=== PATIENT | female | born 1975 | race Caucasian/White ===

== ENCOUNTER 2016-05-10 14:21 | Emergency (ER) | payer MEDICARE, OTHER ==
[2016-05-10 14:41] VITALS: RESP 20
[2016-05-10] MEDS ORDERED: SODIUM CHLORIDE 0.9% 1,000 ML IV ONE (15:02)
[2016-05-10] MEDS ORDERED: ACETAMINOPHEN TAB 325 MG TAB PO STA (15:38)
--- NOTE | 2016-05-10 15:49 | XR ---
EXAMINATION TYPE: XR chest 2V DATE OF EXAM: 05/10/2016 3:35 PM COMPARISON: None HISTORY: 40-year-old female with cough TECHNIQUE: PA and lateral views FINDINGS: The cardiomediastinal silhouette, aorta, and pulmonary vasculature are within normal limits. Lungs an d pleural spaces are clear. Mild pectus excavatum. IMPRESSION: No acute cardiopulmonary process.
[2016-05-10 15:50] LABS: Basophils % (A) 0 %; CH 30.6; CHCM 32.5; Eosinophils # (A) 0.1 k/uL (0-0.7); Eosinophils % (A) 1 %; HCT 37.2 % (34.0-46.0); HDW 2.01; Luc # (Auto) 0.12; Luc % (Auto) 2; Lymphocytes # (A) 1.2 k/uL (1.0-4.8); Lymphocytes % (A) 16 %; MCH 30.5 pg (25.0-35.0); MCHC 32.3 g/dL (31.0-37.0); MCV 94.4 fL (80.0-100.0); Mean Platelet Volume 7.2; Monocytes # (A) 0.5 k/uL (0-1.0); Monocytes % (A) 7 %; Neutrophils # (A) 5.6 k/uL (1.3-7.7); Neutrophils % (A) 75 %; RBC 3.95 m/uL (3.80-5.40); RDW 13.4 % (11.5-15.5); WBC 7.5 k/uL (3.8-10.6); WBC (Perox) 7.48
[2016-05-10 15:52] LABS: Appearance,Urine Clear (Clear); Bilirubin,Urine Negative (Negative); Glucose,Urine (UA) Negative (Negative); Ketones,Urine Negative (Negative); Leukocyte Esterase,Urine Negative (Negative); Nitrite,Urine Negative (Negative); PH, Urine 6.5 (5.0-8.0); Protein,Urine Negative (Negative); Specific Gravity,Urine 1.001 (1.001-1.035); UA Billing (MACRO vs. MICRO) CHEM; Urobilinogen,Urine <2.0 mg/dL (<2.0)
[2016-05-10 16:03] LABS: Anion Gap 9 mmol/L; Blood Urea Nitrogen 11 mg/dL (7-17); Calcium 9.2 mg/dL (8.4-10.2); Carbon Dioxide 27 mmol/L (22-30); Chloride 107 mmol/L (98-107); Glucose 89 mg/dL (74-99); Non-African American GFR(MDRD) >60 (>60 ml/min/1.73 sqM); Potassium 4.3 mmol/L (3.5-5.1); Sodium 143 mmol/L (137-145)
[2016-05-10 17:17] VITALS: BP 106/64; PULSE 88; TEMP 98.9
--- NOTE | 2016-05-10 17:18 | ED ---
General Adult HPI - General Chief complaint: Fever Stated complaint: Post opt Recheck Time Seen by Provider: 05/10/16 14:44 Source: patient Mode of arrival: ambulatory Limitations: no limitations - History of Present Illness Initial comments: 4-year-old female presented for evaluation of a recently repaired rectal fistula. She states that she had her surgery about [address] Hudson and was discharged home without any antibiotics. During this time she was doing soap soaks in her tub. She continued to have bleeding from the site of the surgery for the first 2 days but during the last 2 days the bleeding is continued and there is been an associated fever with a T-max of 10 1F as well as a foul smell from that area. She states that she is continued her soap soaks but the new symptoms continued to persist. She denies any abdominal pain but does admit to a serosanguineous discharge from the wound. This is her second fistula repair. She also states there is a concomitant URI that she has been battling for the last couple days well. - Related Data Home Medications Medication Instructions Recorded Confirmed Pentosan Polysulfate Sodium 100 mg PO HS 06/12/14 05/10/16 [Elmiron] Ergocalciferol [Vitamin D2 50,000 unit PO MO 01/10/16 05/10/16 (DRISDOL)] Estradiol [Estrace] 1 mg PO HS 01/10/16 05/10/16 Lisdexamfetamine Dimesylate 20 mg PO QAM 01/10/16 05/10/16 [Vyvanse] Melatonin 5 mg PO HS 01/10/16 05/10/16 Naproxen [Naprosyn] 500 mg PO Q12HR PRN 01/10/16 05/10/16 OLANZapine [ZyPREXA] 5 mg PO HS 01/10/16 05/10/16 Docusate [Colace] 100 mg PO DAILY 05/10/16 05/10/16 lamoTRIgine [LaMICtal] 200 mg PO TID 05/10/16 05/10/16 Previous Rx's Medication Instructions Recorded Ciprofloxacin HCl [Cipro] 500 mg PO Q12HR #14 tablet 05/10/16 metroNIDAZOLE [Flagyl] 500 mg PO TID #21 tab 05/10/16 Allergies Allergy/AdvReac Type Severity Reaction Status Date / Time aripiprazole [From Abilify] Allergy SWOLLEN Verified 05/10/16 15:19 LIPS IV contrast Allergy Itching Uncoded 05/10/16 14:41 Review of Systems ROS Statement: Those systems with pertinent positive or pertinent negative responses have been documented in the HPI. ROS Other: All systems not noted in ROS Statement are negative. Constitutional: Reports: fever, chills Eyes: Denies: eye pain, eye discharge ENT: Reports: congestion, other (Rhinorrhea). Denies: ear pain, throat pain Respiratory: Reports: cough. Denies: dyspnea, wheezes, hemoptysis, stridor Cardiovascular: Denies: chest pain, palpitations, dyspnea on exertion, orthopnea Endocrine: Denies: fatigue, polydipsia, polyuria Gastrointestinal: Denies: abdominal pain, nausea, vomiting Genitourinary: Denies: urgency, dysuria Musculoskeletal: Denies: back pain, myalgia Skin: Reports: lesions (Rectal fistula repair). Denies: rash Neurological: Denies: headache, weakness Psychiatric: Denies: anxiety, depression Past Medical History Additional Past Medical History / Comment(s): cystitis, depression, anxiety. FISTULA History of Any Multi-Drug Resistant Organisms: C-DIFF Date of last positivie culture/infection: 04/29/2014 MDRO Source:: stool AFTER SURGERY Past Surgical History: Hernia Repair, Hysterectomy, Tonsillectomy Past Anesthesia/Blood Transfusion Reactions: No Reported Reaction Past Psychological History: Anxiety, Depression Smoking Status: Never smoker Past Alcohol Use History: None Reported Past Drug Use History: None Reported - Past Family History Mother Family Medical History: No Reported History General Exam Limitations: no limitations General appearance: alert, in no apparent distress Head exam: Present: atraumatic, normocephalic Eye exam: Present: normal appearance, EOMI ENT exam: Present: normal exam, normal oropharynx, mucous membranes moist. Absent: mucous membranes dry Neck exam: Present: normal inspection. Absent: tenderness Respiratory exam: Present: normal lung sounds bilaterally. Absent: respiratory distress, wheezes Cardiovascular Exam: Present: normal rhythm, tachycardia GI/Abdominal exam: Present: soft. Absent: distended, tenderness Rectal exam: Present: tenderness, other (Rectal fistula repair without surrounding erythema or induration. Unable to express any blood or discharge from the wound.) Extremities exam: Present: normal inspection, full ROM Back exam: Present: normal inspection, full ROM. Absent: tenderness Neurological exam: Present: alert, oriented X3, normal gait Psychiatric exam: Present: normal affect, normal mood Skin exam: Present: warm, dry, intact Course Vital Signs 05/10/16 05/10/16 14:38 17:16 Temperature 100.8 F H 98.9 F Pulse Rate 122 H 88 Respiratory 20 20 Rate Blood Pressure 115/73 106/64 O2 Sat by Pulse 100 97 Oximetry Medical Decision Making - Medical Decision Making 40-year-old female presented for evaluation of her recent rectal fistula repair that has since become more tender with a malodorous smell. Upon presentation she has a mildly elevated temperature and will therefore initiate sepsis protocols and obtain cultures, lactic acid, and provide IV fluids. Physical examination reveals the fistula repair to be in the early stages of healing, without any active bleeding or discharge, and no discharge able to be expressed. There is no surrounding erythema or induration although it is tender to palpate. The rest of her exam is benign with normal lung sounds and nontender abdomen. There is no sinus tenderness to palpation and she is not actively with rhinorrhea. Labs revealed no significant abnormalities including normal lactic acid. Influenza was negative. Chest x-ray showed no acute process. There was a normal white blood cell count. The patient's surgeon Dr. Hudson was unavailable for contact and was therefore not informed of these developments. Patient was informed of all these results and through shared decision making including consideration for admission the patient agreed with plan to discharge with antibiotics and close follow-up with her surgeon on Thursday. She was further advised to return to this facility if her symptoms should worsen or persist including but not limited to: Worsening fever, intractable abdominal pain, continued discharge from the wound, continuing bloater disorder, intractable nausea and vomiting, tremors. The patient acknowledged an understanding of this information and agreed with this plan of care. - Lab Data Result diagrams: 05/10/16 15:23 05/10/16 15:23 Lab Results 05/10/16 05/10/16 05/10/16 Range/Units 15:23 15: 15: WBC 7.5 (3.8-10.6) k/uL RBC 3.95 (3.80-5.40) m/uL Hgb 12.0 (11.4-16.0) gm/dL Hct 37.2 (34.0-46.0) % MCV 94.4 (80.0-100.0) fL MCH 30.5 (25.0-35.0) pg MCHC 32.3 (31.0-37.0) g/dL RDW 13.4 (11.5-15.5) % Plt Count 207 (150-450) k/uL Neutrophils % 75 % Lymphocytes % 16 % Monocytes % 7 % Eosinophils % 1 % Basophils % 0 % Neutrophils # 5.6 (1.3-7.7) k/uL Lymphocytes # 1.2 (1.0-4.8) k/uL Monocytes # 0.5 (0-1.0) k/uL Eosinophils # 0.1 (0-0.7) k/uL Basophils # 0.0 (0-0.2) k/uL Sodium 143 (137-145) mmol/L Potassium 4.3 (3.5-5.1) mmol/L Chloride 107 (98-107) mmol/L Carbon Dioxide 27 (22-30) mmol/L Anion Gap 9 mmol/L BUN 11 (7-17) mg/dL Creatinine 0.70 (0.52-1.04) mg/dL Est GFR (MDRD) Af Amer >60 (>60 ml/min/1.73 sqM) Est GFR (MDRD) Non-Af >60 (>60 ml/min/1.73 sqM) Glucose 89 (74-99) mg/dL Plasma Lactic Acid Telly (0.7-2.0) mmol/L Calcium 9.2 (8.4-10.2) mg/dL Urine Color Urine Appearance (Clear) Urine pH (5.0-8.0) Ur Specific [place] (1.001-1.035) Urine Protein (Negative) Urine Glucose (UA) (Negative) Urine Ketones (Negative) Urine Blood (Negative) Urine Nitrate (Negative) Urine Bilirubin (Negative) Urine Urobilinogen (<2.0) mg/dL Ur Leukocyte Esterase (Negative) Influenza Type A RNA Not Detected (Not Detectd) Influenza Type B (PCR) Not Detected (Not Detectd) 05/10/16 05/10/16 Range/Units 15:23 15:23 WBC (3.8-10.6) k/uL RBC (3.80-5.40) m/uL Hgb (11.4-16.0) gm/dL Hct (34.0-46.0) % MCV (80.0-100.0) fL MCH (25.0-35.0) pg MCHC (31.0-37.0) g/dL RDW (11.5-15.5) % Plt Count (150-450) k/uL Neutrophils % % Lymphocytes % % Monocytes % % Eosinophils % % Basophils % % Neutrophils # (1.3-7.7) k/uL Lymphocytes # (1.0-4.8) k/uL Monocytes # (0-1.0) k/uL Eosinophils # (0-0.7) k/uL Basophils # (0-0.2) k/uL Sodium (137-145) mmol/L Potassium (3.5-5.1) mmol/L Chloride (98-107) mmol/L Carbon Dioxide (22-30) mmol/L Anion Gap mmol/L BUN (7-17) mg/dL Creatinine (0.52-1.04) mg/dL Est GFR (MDRD) Af Amer (>60 ml/min/1.73 sqM) Est GFR (MDRD) Non-Af (>60 ml/min/1.73 sqM) Glucose (74-99) mg/dL Plasma Lactic Acid Telly 1.2 (0.7-2.0) mmol/L Calcium (8.4-10.2) mg/dL Urine Color Colorless Urine Appearance Clear (Clear) Urine pH 6.5 (5.0-8.0) Ur Specific [place] 1.001 (1.001-1.035) Urine Protein Negative (Negative) Urine Glucose (UA) Negative (Negative) Urine Ketones Negative (Negative) Urine Blood Negative (Negative) Urine Nitrate Negative (Negative) Urine Bilirubin Negative (Negative) Urine Urobilinogen <2.0 (<2.0) mg/dL Ur Leukocyte Esterase Negative (Negative) Influenza Type A RNA (Not Detectd) Influenza Type B (PCR) (Not Detectd) Disposition Clinical Impression: Fistula, Fever, URI (upper respiratory infection) Disposition: HOME SELF-CARE Condition: Stable Instructions: Anorectal Abscess and Anal Fistula (ED) Additional Instructions: Please use medication as discussed. Please follow up with family doctor if symptoms have not improved over the next two days. Please return to the emergency room if your symptoms increase or worsen or for any other concerns. Prescriptions: Ciprofloxacin HCl [Cipro] 500 mg PO Q12HR #14 tablet metroNIDAZOLE [Flagyl] 500 mg PO TID #21 tab Referrals: Moni You DO [Primary Care Provider] - 1-2 days Time of Disposition: 17:18
== END 2016-05-10 17:25 | disposition home or self-care (01) ==
LOC: EC 14:21
DX: K60.4 Rectal fistula (principal); J06.9 Acute upper respiratory infection, unspecified; F32.9 Major depressive disorder, single episode, unspecified; N30.90 Cystitis, unspecified without hematuria; Z88.8 Allergy status to other drugs, medicaments and biological substances; Z98.890 Other specified postprocedural states; Z91.041 Radiographic dye allergy status; Z79.899 Other long term (current) drug therapy
CPT/HCPCS: 36415; 71020; 80048; 81003; 83605; 85025; 87040; 87502; 96360; 96361; 99283

== ENCOUNTER → 2016-05-22 | Outpatient (CLI) | payer MEDICARE, OTHER | END | disposition home or self-care (01) | LOC: RADFLWHC 08:38 | PROVIDERS: ATTEND Family Medicine ==

== ENCOUNTER → 2016-06-27 | Outpatient (CLI) | payer MEDICARE, OTHER ==
--- NOTE | 2016-06-27 09:10 | FL ---
EXAMINATION TYPE: FL UGI air DATE OF EXAM: 06/27/2016 9:06 AM COMPARISON: NONE HISTORY: Return of reflux symptoms following hiatal hernia repair. TECHNIQUE: A double contrast UGI study is performed. FINDINGS: The patient swallowed barium of these. The esophagus distended well with air and barium wit hout evidence of obstructing or constricting disease. There is no evidence of significant reflux or h iatal hernia. Stomach contour is normal. There are no dawood ulcerations or fixed filling defect. The duodenal cap a nd sweep are normal. IMPRESSION: NORMAL AIR-CONTRAST UPPER GI.
== END | disposition home or self-care (01) ==
LOC: RADFLWHC 08:34
PROVIDERS: ATTEND Family Medicine
DX: K21.9 Gastro-esophageal reflux disease without esophagitis (principal)
CPT/HCPCS: 74246

== ENCOUNTER → 2017-10-22 | Outpatient (CLI) | payer MEDICARE ==
--- NOTE | 2017-10-29 16:37 | MM ---
Reason for exam: screening (asymptomatic). Last mammogram was performed 1 year and 1 month ago. History: Patient is nulliparous. MG 3D Screening Mammo W/Cad Bilateral CC, MLO, and XCCL view(s) were taken. Prior study comparison: September 25, 2016, mammogram, performed at [facility]. September 19, 2015, mammogram, performed at [facility]. The breast tissue is heterogeneously dense. This may lower the sensitivity of mammography. No significant changes when compared with prior studies. ASSESSMENT: Negative, BI-RAD 1 RECOMMENDATION: Routine screening mammogram of both breasts in 1 year.
== END | disposition home or self-care (01) ==
LOC: RADMAMWWP 13:56
PROVIDERS: ATTEND Obstetrics & Gynecology
DX: Z12.31 Encounter for screening mammogram for malignant neoplasm of breast (principal)
CPT/HCPCS: 77063; 77067

== ENCOUNTER → 2018-04-23 | Outpatient (CLI) | payer MEDICARE ==
[2018-04-23 18:54] LABS: Anion Gap 7.1 mmol/L (4.00-12.00); Carbon Dioxide 26.9 mmol/L (21.6-31.8); Lithium 0.4 mmol/L (1.0-1.2); Potassium 4.2 mmol/L (3.5-5.5)
== END | disposition home or self-care (01) ==
LOC: LABWHC1 11:40
DX: Z51.81 Encounter for therapeutic drug level monitoring (principal); Z79.899 Other long term (current) drug therapy
CPT/HCPCS: 36415; 80051; 80178; 82565; 84520

== ENCOUNTER 2018-07-03 16:10 | Inpatient (IN) | payer MEDICAID, MEDICARE ==
--- NOTE | 2018-07-03 16:35 | ED ---
Psych HPI - General Chief Complaint: Psychiatric Symptoms Stated Complaint: Mental Health Time Seen by Provider: 07/03/18 16:19 Source: patient, RN notes reviewed Mode of arrival: ambulatory Limitations: no limitations - History of Present Illness Initial Comments: This a 43-year-old female presents to the emergency Department for psychiatric evaluation. Patient states she is depressed and suicidal. Patient has not tried to harm herself denies any drug use no alcohol abuse. Patient is in between medications. Patient used to be on Zyprexa and Lamictal. Patient's homicidal. Patient offers no other complaints. - Related Data Home Medications Medication Instructions Recorded Confirmed Ergocalciferol [Vitamin D2 50,000 unit PO MO 01/10/16 07/03/18 (DRISDOL)] Estradiol [Estrace] 1 mg PO HS 01/10/16 07/03/18 ALPRAZolam [Xanax XR] 2 mg PO HS 07/03/18 07/03/18 ALPRAZolam [Xanax] 0.5 mg PO DAILY PRN 07/03/18 07/03/18 Biotin 5,000 mcg PO DAILY 07/03/18 07/03/18 Calcium Citrate 250 mg PO BID 07/03/18 07/03/18 [place] Carbonate 150 mg PO TID 07/03/18 07/03/18 Magnesium Oxide [Mag-Ox] 400 mg PO DAILY 07/03/18 07/03/18 Melatonin 5 mg PO HS 07/03/18 07/03/18 Mirtazapine [Remeron] 30 mg PO HS 07/03/18 07/03/18 [place]-3 Fatty Acids/Fish Oil [Fish 1 cap PO BID 07/03/18 07/03/18 Oil 1,000 mg Softgel] Turmeric Root Extract [Turmeric] 500 mg PO DAILY 07/03/18 07/03/18 Allergies Allergy/AdvReac Type Severity Reaction Status Date / Time aripiprazole [From Abilify] Allergy SWOLLEN Verified 07/03/18 16:53 LIPS IV contrast Allergy Itching Uncoded 07/03/18 16:21 Review of Systems ROS Statement: Those systems with pertinent positive or pertinent negative responses have been documented in the HPI. ROS Other: All systems not noted in ROS Statement are negative. Past Medical History Additional Past Medical History / Comment(s): cystitis, depression, anxiety. FISTULA History of Any Multi-Drug Resistant Organisms: C-DIFF Date of last positivie culture/infection: 04/29/2014 MDRO Source:: stool AFTER SURGERY Past Surgical History: Hernia Repair, Hysterectomy, Tonsillectomy Past Anesthesia/Blood Transfusion Reactions: No Reported Reaction Past Psychological History: Anxiety, Depression Smoking Status: Never smoker Past Alcohol Use History: None Reported Past Drug Use History: None Reported - Past Family History Mother Family Medical History: No Reported History General Exam Limitations: no limitations General appearance: alert, in no apparent distress Head exam: Present: atraumatic, normocephalic, normal inspection Eye exam: Present: normal appearance, PERRL, EOMI. Absent: scleral icterus, conjunctival injection, periorbital swelling ENT exam: Present: normal exam, mucous membranes moist Neck exam: Present: normal inspection, full ROM. Absent: tenderness, meningismus, lymphadenopathy Respiratory exam: Present: normal lung sounds bilaterally. Absent: respiratory distress, wheezes, rales, rhonchi, stridor Cardiovascular Exam: Present: regular rate, normal rhythm, normal heart sounds. Absent: systolic murmur, diastolic murmur, rubs, gallop, clicks GI/Abdominal exam: Present: soft, normal bowel sounds. Absent: distended, tenderness, guarding, rebound, rigid Neurological exam: Present: alert, oriented X3, CN II-XII intact, reflexes normal. Absent: motor sensory deficit Psychiatric exam: Present: depressed, anxious Skin exam: Present: warm, dry, intact, normal color. Absent: rash Course Vital Signs 07/03/18 16:18 Temperature 98.3 F Pulse Rate 92 Respiratory 18 Rate Blood Pressure 118/80 O2 Sat by Pulse 96 Oximetry Medical Decision Making - Medical Decision Making Patient evaluated by EPS and case discussed with psychiatrist who recommends inpatient treatment. - Lab Data Lab Results 07/03/18 Range/Units 16:25 Urine Opiates Screen Not Detected (NotDetected) Ur Oxycodone Screen Not Detected (NotDetected) Urine Methadone Screen Not Detected (NotDetected) Ur Propoxyphene Screen Not Detected (NotDetected) Ur Barbiturates Screen Not Detected (NotDetected) U Tricyclic Antidepress Not Detected (NotDetected) Ur Phencyclidine Scrn Not Detected (NotDetected) Ur Amphetamines Screen Not Detected (NotDetected) U Methamphetamines Scrn Not Detected (NotDetected) U Benzodiazepines Scrn Detected H (NotDetected) Urine Cocaine Screen Not Detected (NotDetected) U Marijuana (THC) Screen Not Detected (NotDetected) Disposition Clinical Impression: Depression, Suicidal ideation Disposition: TRANSFER TO PSYCH HOSP/UNIT Referrals: Moni You DO [Primary Care Provider] - 1-2 days
[2018-07-03 16:56] LABS: Amphetamine Screen,Urine Not Detected (NotDetected); Barbiturate Screen,Urine Not Detected (NotDetected); Benzodiazepines Screen,Urine Detected (NotDetected); Cocaine Screen,Urine Not Detected (NotDetected); Methadone Screen, Urine Not Detected (NotDetected); Opiate Screen,Urine Not Detected (NotDetected); Oxycodone Screen, Urine Not Detected (NotDetected); Phencyclidine Screen,Urine Not Detected (NotDetected); Tricyclic Antidepressant,Urine Not Detected (NotDetected); Urn Cannabinoid Scrn Not Detected (NotDetected)
[2018-07-03] MEDS ORDERED: ACETAMINOPHEN TAB 325 MG TAB PO PRN (17:48)
[2018-07-03] MEDS ORDERED: LORazepam 1 MG TAB PO PRN (17:48)
[2018-07-03] MEDS ORDERED: MAGNESIUM HYDROXIDE 2,400 MG/10 ML CUP PO PRN (17:48)
[2018-07-03] MEDS ORDERED: MAG HYDROX/AL HYDROX/SIMETH 30 ML CUP PO PRN (17:48)
[2018-07-03] MEDS ORDERED: LORazepam 2 MG/ML INJ IM PRN (17:53)
[2018-07-03] MEDS ORDERED: OLANZapine 2.5 MG TAB PO SCH (21:00)
[2018-07-03] MEDS ORDERED: MIRTAZAPINE 15 MG TAB PO SCH (22:00)
[2018-07-03] MEDS: ESTRADIOL 0.5 MG TAB PO SCH (22:07)
[2018-07-04 09:12] LABS: Basophils % (A) 0 %; Eosinophils # (A) 0.3 k/uL (0-0.7); Eosinophils % (A) 6 %; HCT 40.1 % (34.0-46.0); HGB 12.9 gm/dL (11.4-16.0); Lymphocytes # (A) 1.9 k/uL (1.0-4.8); Lymphocytes % (A) 36 %; MCH 30.5 pg (25.0-35.0); MCHC 32.1 g/dL (31.0-37.0); MCV 95.1 fL (80.0-100.0); Mean Platelet Volume 8.2; Monocytes # (A) 0.2 k/uL (0-1.0); Monocytes % (A) 4 %; Neutrophils # (A) 2.7 k/uL (1.3-7.7); Neutrophils % (A) 52 %; Platelet Count 221 k/uL (150-450); RBC 4.22 m/uL (3.80-5.40); RDW 13.5 % (11.5-15.5); WBC 5.3 k/uL (3.8-10.6)
[2018-07-04] MEDS: MAGNESIUM OXIDE 400 MG TAB PO SCH (09:23)
[2018-07-04] MEDS ORDERED: OLANZapine 5 MG TAB PO PRN (14:49)
[2018-07-04 18:00] VITALS: BMI 18.8
--- NOTE | 2018-07-04 18:17 | HP ---
HISTORY AND PHYSICAL DATE OF SERVICE: 07/04/2018. IDENTIFYING DATA: The patient is a 43-year-old female. She resides with her parents. She is on disability. She was admitted through the emergency department. CHIEF COMPLAINT: The patient was depressed, hopeless. Sleeping poorly. She has had long-term problems with anxiety and depression. HISTORY OF PRESENT ILLNESS: The patient has had increasing problems with depression over the last several months. She had been followed by her family physician for a number of years. She was on a combination of Zyprexa and Lamictal. In February, she started seeing Dr. Shipley. She had developed a diagnosis of osteopenia, which was felt to be complicated from Lamictal, so she was taken off the Lamictal. She continued on Zyprexa. Dr. Shipley subsequently tapered her off of Zyprexa. She had been on 7.5 mg a day. She stopped altogether as of June 17. Currently, she is on Remeron 30 mg a day, lithium 150 mg 3 times a day and Xanax XR 2 mg at bedtime. She says in addition to father issues she has been concerned about use of lithium because she has had problems with hair falling out. She has been having significant problems with poor sleep, though she says in the last few weeks her sleep had been gradually improving. She gets quite hopeless. She has loss of motivation energy and interest. She says she will spend long periods of time just laying on the couch and cannot seem to motivate herself to do much at all. She says the depression has been gradually increasing over the last several months, though she also reports much longer-term problems with anxiety and mood difficulties. She had 1 previous psychiatric hospitalization in 2012 at [facility]. She has had diagnoses of depression, bipolar disorder, OCD and ADHD. In November 2017, the patient had TMS treatments at the [facility]. She said she went through 35 treatments, though I found no help from the treatments with her depression. The patient reports that she essentially has had lifelong problems with depression. She says she has had periods in her life where she feels she gets along fairly well. She can be happy though she says in spite of that she has always had a pervasive sense that she has a bleak outlook. She reported feeling bullied as a child, pretty much throughout school. She has had a high school was hard for her. She acknowledged that as a child she was angry, though mostly never let her anger out. She was the youngest of 4 children. In some way she believes her mother was not emotionally available to her. She notes that her mother had a very abusive childhood and in reaction to that mother was essentially very coddling. Her mother has significant mental health issues herself of multiple psychiatric hospitalizations. Part of the patient's current situation is that she lives with her parents and has a major role in helping support and take care of her mother. She says that she has always had a fear foods that she would turned out like her mother. She says that in her current situation, her mother has very low motivation and essentially is housebound. She sees herself in the same way. She graduated from college and then went into the [employer]. She only served 9 months in the [employer] in part because of anxiety and some depression issues. In addition, there were safety concerns. She describes obsessive thoughts. She says that for the most part, the thoughts get more difficult for her when her mood is down though she has stretches of time where she does not really identify obsessions. She described some sessions such as she could be sitting there looking at some scissors and then suddenly the thought comes into her head that she could cut her dogs tail off. These thoughts might be quite pervasive for her. She has had thoughts that she might do harmful things to herself. These thoughts can occur over and over. She notes that as a child she had some compulsive behaviors of touching though that has not persisted beyond childhood. She notes that she has had some panic attacks. She said in February she started waking from sleep in a panic that quieted down for her, though she says just in the last few days she has started waking up in a panic again. She was started on Zoloft at age 18. She has taken it for a number of years. She said the dose was titrated up to 100 mg a day and said she had been diagnosed by one psychiatrist as having bipolar disorder, though she is not aware of ever having any manic symptoms other than poor sleep which she defined as poor sleep rather than not needing sleep. She reported no problems with hallucinations or delusional thoughts. Her lithium level in the emergency department at 7:59 pm was 0.4. She had been on Lamictal up to 600 mg a day. She has been in various counseling situations. She was she has been seeing a counselor, Shelia, for 5-6 years. In addition, she has seen other counselors and at one point, was seeing 2 counselors for 2 different interventions. She had gotten involved in CBT at one point. She is admitted for further evaluation. SUBSTANCE USE HISTORY: None reported other than her continued use of Xanax. She says she has only been on Xanax since February. She was vague about whether or not her dose of Xanax has been increased up to 2 mg a day and whether or not she has shown signs of tolerance or withdrawal from Xanax. PAST MEDICAL HISTORY: The patient reports lower back pain. Osteoporosis, TEMPOROMANDIBULAR JOINT (TMJ) SYNDROME . MEDICATIONS: Other than her psychiatric medication, she is not currently on any medications for general health issues. REVIEW OF SYMPTOMS: The patient reports some issues on and off with headaches. She has not had change in vision or hearing. She notes that she has tremor in the muscles in her cheeks when she forces a smile. She says she has had this for a couple years and that it has gotten worse. She has question whether this is a sign of tardive dyskinesia related to her use of Zyprexa. She does not have any other abnormal movements, particularly in the mouth or face area. She reports no difficulty with swallowing. She denies shortness of breath. Dyspnea, chest pain, or irregular heartbeats. She denies problems with nausea, vomiting, dyspepsia, probable problems with bowel or bladder. She reports no rash or skin irritation. Extremities are unremarkable. FAMILY AND SOCIAL HISTORY: The patient is graduated from high school and has a bachelor's degree. 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 She left after 9 months. She did receive some mental health intervention while she was still attached to the [employer]. In 2006, she returned to school and got her teaching certificate. Following that, she worked in [place] as a [employer] for family. She is single and has no children. She notes that her father worked in a tool and [employer]. Her mother was a home care provider. She is the youngest of 4 children. She had a brother and grandfather who committed suicide. There are significant mental health issues with mood disorder within her family including her mother. She has a brother who lives in the [facility] and a sister who lives in [place]. Patient noted that she had 1 good friend that she has known since a college who lives out of state. She says that when she is down in her mood, she does not have much contact with her friend. She does say she has a few other supports, though mostly she communicates with others by a text. MENTAL STATUS EXAM: Patient had fair dress and grooming. She gave fair eye contact. Psychomotor activity was restless. She answered questions with direct responses. Her thoughts were clear, coherent, and goal directed. Often she would get into significant details about not only issues of her treatment, but things she had studied regarding the medications and her condition. Frequently throughout the interview, she would make references to being anxious and stating that she was worried whether or not she would be able to sleep tonight. Her affect was anxious and intense. Her mood depressed. She was significantly distressed. There was no indication of thought disorder. Cognition was clear. The patient was oriented and alert. Recent remote memory was intact. Attention and concentration were fair. Insight and judgment uncertain. Fund of knowledge average or above average. PHYSICAL EXAM: As per medical consultation. ASSESSMENT: This 43-year-old female has long-term issues with depression that has been pervasive. She may have some issues with obsessive compulsive disorder, primarily with obsessions and anxiety to the extent that this primarily is related to anxiety disorder versus or issues of personality remain to be seen. She likely has posttraumatic issues relating to high risk scores on adverse childhood experiences Scale. She has poor self-esteem. She has limited social supports. Strengths include [place] intelligence. Weaknesses include her being in a mutually dependence situation with her mother. DIAGNOSES: 1. Major depression, chronic and recurrent severe with acute exacerbation without psychotic features. 2. Posttraumatic stress disorder. 3. Possible obsessive-compulsive disorder. 4. Rule out benzodiazepine dependence. RECOMMENDATIONS: Patient will be admitted for comprehensive medical psychiatric and psychosocial evaluation. We will engage the patient in individual and group therapeutic activities. I had an extensive discussion with the patient regarding treatment issues. I discussed that given her long-term problems with depression, there might need to be consideration for her to be off benzodiazepines altogether. Whether or not she has a dependency and may go through withdrawal for 6-12 weeks is something we discussed and may be a factor in her treatment. I discussed that the primary treatment options would be aimed towards use of antidepressant medications. She currently is on Remeron 30 mg a day. I will increase her dose to 45 mg a day. She has been taking Xanax XR 2 mg at bedtime. She took 1 mg of Ativan last night without much benefit from sleep. I will start the patient on trazodone 75 mg at bedtime. I will reduce Ativan down to 0.5 mg at bedtime. She will also be receiving Remeron at bedtime. She has been on lithium, which will be discontinued. She has some movement issues in facial muscles, may benefit from a neurology referral so that could best be left to outpatient followup. We will focus on stabilization and discharge planning. SOULEYMANE / SELINA: [id number] /
--- NOTE | 2018-07-04 18:38 | HP ---
HISTORY AND PHYSICAL Sarah Cardoza is a 43-year-old female with a history of depression and is admitted to the psychiatric unit. Consultation is placed regarding her medical care. She denies any recent fever, chills or rigors. She has no cough. She has had some right-sided abdominal pain that is mild, comes in the form of cramps and is intermittent. She otherwise has been fairly healthy. PAST MEDICAL HISTORY: Positive for anxiety and depression. History of hysterectomy, history of hiatal hernia with subsequent surgery. FAMILY HISTORY: Positive for hypertension in her father. SOCIAL HISTORY: Patient is a nonsmoker. Does not drink alcohol excessively. MEDICATIONS: Prior to admission were vitamin D2, Biotin, turmeric, omega-3 fatty acids, melatonin, magnesium oxide, calcium citrate, Xanax, Remeron, lithium carbonate and estradiol. REVIEW OF SYSTEMS: Noncontributory. PHYSICAL EXAMINATION: Blood pressure is 104/77, respiratory rate of 12, pulse 87, temperature 98.6, O2 saturation on room air is 96%. HEENT reveals pupils that equal. Chest is clear. Cardiovascular system reveals a S1, S2. Abdomen is soft. There is no pedal edema. LABS: Reveal a white count of 5.3, hemoglobin 12.9, HDL is 79, TSH 1.9. Cholesterol 156, triglycerides 54. Urine benzodiazepines positive. [place] level was 0.4. IMPRESSION: At this time, 1. Anxiety with depression. 2. History of osteoporosis. 3. Hiatal hernia, status post surgery. 4. Abdominal pain, nonspecific. At this point in time, would continue her on her current medications which were reviewed. Use milk of magnesia and Maalox p.r.n. I would like to thank you for allowing us to care for her. MMODL / IJN: [id number] /
[2018-07-04] MEDS: ESTRADIOL 0.5 MG TAB PO SCH (20:50)
[2018-07-04] MEDS: NAPROXEN 250 MG TAB PO SCH (20:51)
[2018-07-04] MEDS: MIRTAZAPINE 45 MG TABLET PO SCH (20:51)
[2018-07-04] MEDS: LORazepam 0.5 MG TAB PO PRN (20:53)
[2018-07-04] MEDS ORDERED: traZODone HCL 50 MG TAB PO SCH (21:00)
[2018-07-05] MEDS: NAPROXEN 250 MG TAB PO SCH ×2 (08:44→21:12)
[2018-07-05] MEDS: LORazepam 0.5 MG TAB PO PRN (08:45)
[2018-07-05 10:24] LABS: Hemoglobin A1C 5.2 % (4.0-6.0)
[2018-07-05] MEDS: MAGNESIUM OXIDE 400 MG TAB PO SCH (10:32)
--- NOTE | 2018-07-05 11:18 | P.PN ---
Progress Note - Text Interval history: The patient is found in group she follows me to an interview room. The psychiatric evaluation from yesterday was reviewed. She presented with worsening symptoms of depression. She states she has hopeless thoughts with ongoing suicidal ideation. She states that she's had thoughts of jumping off of a bridge. She reports feeling markedly depressed hopeless and overwhelmed. Since being admitted she reports increased anxiety. She states she typically doesn't have significant anxiety. We reviewed her psychotropic medications. Her Remeron is been titrated she was changed from Xanax 2 mg at bedtime to Ativan 0.5 mg up to 3 times daily. She was recently tapered off of Zyprexa and just recently taken off of lithium. The patient states that she is considering pursuing ECT. We reviewed that in some detail. We also reviewed medication trials that may be available to her as well. She has been participating in groups. Mental status exam: The patient is a thin female appearing her stated age. She is dressed in her own clothing hygiene grooming adequate. Speech is fluent spontaneous nonpressured. She maintains a bland affect throughout the session. She endorses a depressed mood with hopelessness thinking with continued suicidal ideation. No reported homicidal ideation. She reports no v isual hallucinations. She states that she feels she is hearing music coming from the heater and the humming from the fluorescent lighting has a rhythmic quality to it. She is endorsing no specific delusions. She does not appear hypomanic or manic. Thought process is linear she demonstrates no tangential thinking loose associations or flight of ideas. Insight and judgment limited. Plan: The patient will continue on the Remeron is written we'll titrate the trazodone 100 mg at bedtime to help with sleep. Ativan will be increased to 1 mg up to 3 times a day as needed for anxiety. She reported today she was 90% sure she wanted to proceed with ECT we will allow her more time to consider this before making arrangements. We discussed options in terms of transferring her to [facility] or [facility] depending on availability. We will monitor her for safety and encourage participation in the milieu.
[2018-07-05] MEDS: LORazepam 1 MG TAB PO PRN ×2 (15:32→21:13)
[2018-07-05] MEDS: traZODone HCL 100 MG TAB PO SCH (21:12)
[2018-07-05] MEDS: MIRTAZAPINE 45 MG TABLET PO SCH (21:12)
[2018-07-05] MEDS: ESTRADIOL 0.5 MG TAB PO SCH (21:12)
[2018-07-06] MEDS: MAGNESIUM OXIDE 400 MG TAB PO SCH (08:45)
[2018-07-06] MEDS: NAPROXEN 250 MG TAB PO SCH ×2 (08:46→21:10)
--- NOTE | 2018-07-06 09:28 | P.PN ---
Progress Note - Text Interval history: The patient is found in her room she follows me to an interview room. She states that she continues to feel depressed. She reports being tired of feeling depressed all the time. She was able to sleep last night and believes she slept more than 6 hours. Staff documented 6 hours. Appetite is decreased. She indicates she attended groups yesterday. She did speak with her father and her sister via phone yesterday about treatment options. Today she states she would like to pursue ECT and would like the initial referral to go to [facility]. We discussed that if they are not accepting her we would pursue a referral at [facility] and she is agreeable. She had several questions regarding ECT and medications and those were addressed. She is finding the Ativan helpful for anxiety symptoms. Mental status exam: The patient is a thin female she is dressed in her own clothing. She has a guarded affect she seated with her arms crossed. She maintains a constricted affect. She reports an ongoing depressed mood with hopelessness thoughts. She has ongoing thoughts of wanting to be . She describes continued anxiety although it is mildly improved. Speech is fluent spontaneous nonpressured she demonstrates no tangential thinking loose associations or flight of ideas. She does not appear hypomanic or manic. She describes no symptoms of psychosis today there is no observed evidence of psychosis. She remains oriented to person place and date. Plan: The patient continues to experience severe symptoms of depression. She has been tried on numerous psychotropic medications in the past and states that she is tired of trialing different medications. She would like to pursue ECT treatment. We discussed this as a treatment option and discussed some of the potential benefits and risks of pursuing ECT. She indicates she would primarily like to go to [facility] but is willing to go to [facility] secondarily. We will monitor her for safety and encourage participation in the milieu. Vital signs reviewed.
[2018-07-06] MEDS: traZODone HCL 100 MG TAB PO SCH (21:10)
[2018-07-06] MEDS: ESTRADIOL 0.5 MG TAB PO SCH (21:10)
[2018-07-06] MEDS: MIRTAZAPINE 45 MG TABLET PO SCH (21:11)
[2018-07-06] MEDS: LORazepam 1 MG TAB PO PRN (21:12)
[2018-07-07 06:47] VITALS: RESP 18
--- NOTE | 2018-07-07 09:25 | P.PN ---
Progress Note - Text Interval history: The patient is found in her room she follows me to an interview room. She reports she feels miserable this morning. She feels sad and depressed and hopeless. She indicates having difficulty sleeping last night due to disturbances in her room. She feels stuck here and worries she is going to "lose it". She indicates appetite is still decreased. She states that she has been attending groups. We discussed our efforts in getting her transferred to another facility for ECT. We are waiting for responses from [facility] and [facility]. Mental status exam: The patient is a thin female appearing her stated age. She is dressed in her own clothing. She has a guarded posture. He seated in the chair with her arms crossed. She has a dysphoric affect and is tearful throughout the session. She reports a depressed mood with hopelessness thoughts. She has suicidal ideation feeling she cannot live this way. She reports she feels things will never get better. It is very difficult to redirect her thinking as it is nihilistic. She is reporting no symptoms of psychosis there is no observed evidence of psychosis. She does not appear hypomanic or manic. Insight and judgment limited. She is oriented to person place and date. She demonstrates no verbal or physical aggressiveness she demonstrates no involuntary repetitive movements. She is able to induce repetitive movements of her face but they do not spontaneously occur. Plan: The patient will continue on her current psychotropic medications. We are awaiting input in terms of ECT placement. She has no further questions regarding ECT today. We will monitor her for safety she is encouraged to participate in the milieu. She is looking forward to a visit from her family this evening. Vital signs reviewed.
[2018-07-07] MEDS: NAPROXEN 250 MG TAB PO SCH ×2 (09:29→21:22)
[2018-07-07] MEDS: MAGNESIUM OXIDE 400 MG TAB PO SCH (09:29)
[2018-07-07] MEDS: MIRTAZAPINE 45 MG TABLET PO SCH (21:22)
[2018-07-07] MEDS: ESTRADIOL 0.5 MG TAB PO SCH (21:22)
[2018-07-07] MEDS: traZODone HCL 100 MG TAB PO SCH (21:22)
[2018-07-07] MEDS: LORazepam 1 MG TAB PO PRN (21:23)
[2018-07-08 07:01] VITALS: BP 103/72; PULSE 114; TEMP 98.5
[2018-07-08] MEDS: NAPROXEN 250 MG TAB PO SCH (09:04)
--- NOTE | 2018-07-08 09:11 | P.DS ---
Providers Date of admission: 07/03/18 17:26 Expected date of discharge: 07/08/18 Attending physician: Abilio Gutierrez Consults: 07/03/18 17:48 Consult Physician Routine Consulting Provider: Elana Rosa Consult Reason/Comments: medical management Do you want consulting provider notified?: Yes, Notify in am Primary care physician: Moni You - Discharge Diagnosis(es) (1) Major depressive disorder, recurrent severe without psychotic features Current Visit: Yes Status: Acute Priority: High Hospital Course: Brief summary of admission note: This patient is a 43-year-old single female who was admitted to the mental health unit through the emergency room for severe symptoms of depression. She reports that she was hopeless she had been sleeping poorly. She had been struggling more with recent anxiety. She reported feelings of no interest in activities decreased energy and spending extended periods of time laying on the couch. Depression has been worsening over the last several months and she presented with suicidal ideation. For full details please refer to the psychiatric evaluation dated 07/04/2018. Summary of hospital course: The patient was admitted to the mental health unit voluntarily. She was initially evaluated by Dr. Brown. She was continued on Remeron and the dosage was increased to 45 mg. She was started on trazodone 75 mg at bedtime. She was continued on Ativan as needed for anxiety symptoms. I assumed care of this patient this past Thursday. We reviewed her presenting symptoms and treatment options. At that point she stated she wanted to pursue ECT. She had been given this consideration for quite some time and feels that she does not want to pursue any other medication trials. I addressed her questions regarding ECT we discussed risks and benefits of that procedure. She initially wanted us to pursue transfer to [facility] for ECT but there was no bed availability. Her second choice was [facility] and they have an available bed. Arrangements have been made for her to go to [facility] today via ambulance as a direct transfer. The patient states that she has discussed this with her sister and her parents and they support her treatment choice. Mental status exam: The patient is a thin female appearing her stated age. She is dressed in her own clothing. Eye contact is appropriate. She reports a depressed mood affect is congruent she is briefly tearful during this session. She endorses continued hopelessness thinking. She has at least continued passive suicidal ideation stating she doesn't care if she dies. She is reporting no homicidal ideation intent or plan. She is reporting no current auditory or visual hallucination. She endorses no specific delusions. There is no observed evidence of psychosis. She demonstrates no tangential thinking loose associations or flight of ideas. She does not appear hypomanic or manic. She demonstrates no verbal or physical aggressiveness no involuntary repetitive movements. Insight and judgment overall grossly intact but impacted by severe depression. Impressions 1. Major depressive disorder recurrent severe without psychosis Plan: The patient will be discharged mental health unit today and will be directly transferred via EMS to [facility] to pursue ECT. She will continue Remeron 45 mg at bedtime. She was informed that medication changes will likely occur upon her admission to [facility] in preparation for ECT. Patient Condition at Discharge: Serious Plan - Discharge Summary Discharge Rx Participant: No New Discharge Prescriptions: New Mirtazapine [Remeron] 45 mg PO HS #0 tablet Continue Estradiol [Estrace] 1 mg PO HS Discontinued Ergocalciferol [Vitamin D2 (DRISDOL)] 50,000 unit PO MO Turmeric Root Extract [Turmeric] 500 mg PO DAILY [place]iance-3 Fatty Acids/Fish Oil [Fish Oil 1,000 mg Softgel] 1 cap PO BID Melatonin 5 mg PO HS Magnesium Oxide [Mag-Ox] 400 mg PO DAILY Calcium Citrate 250 mg PO BID ALPRAZolam [Xanax] 0.5 mg PO DAILY PRN PRN Reason: Anxiety ALPRAZolam [Xanax XR] 2 mg PO HS Mirtazapine [Remeron] 30 mg PO HS [place] Carbonate 150 mg PO DAILY Biotin 5,000 mcg PO DAILY [place] Carbonate 300 mg PO HS Discharge Medication List Estradiol [Estrace] 1 mg PO HS 01/10/16 [History] Mirtazapine [Remeron] 45 mg PO HS #0 tablet 07/08/18 [Rx] Follow up Appointment(s)/Referral(s): intake,intake [Other] - 07/08/18 Moni You DO [Primary Care Provider] - 1-2 days Activity/Diet/Wound Care/Special Instructions: Follow up with a neurologist upon discharge due to abnormal movements in facial muscles when smiling.
== END 2018-07-08 12:21 | disposition short-term general hospital (02) | DRG 885 ==
LOC: EC 16:10 → 3MHU 17:26
PROVIDERS: ADMIT Psychiatry & Neurology Psychiatry; ATTEND Psychiatry & Neurology Psychiatry
DX: F33.2 Major depressive disorder, recurrent severe without psychotic features (principal); R45.851 Suicidal ideations; F43.10 Post-traumatic stress disorder, unspecified; F42.9 Obsessive-compulsive disorder, unspecified; F90.9 Attention-deficit hyperactivity disorder, unspecified type; F41.9 Anxiety disorder, unspecified; F41.0 Panic disorder [episodic paroxysmal anxiety]; M81.0 Age-related osteoporosis without current pathological fracture; M54.5 Low back pain; G47.9 Sleep disorder, unspecified; M26.609 Unspecified temporomandibular joint disorder, unspecified side; Z79.899 Other long term (current) drug therapy; Z87.440 Personal history of urinary (tract) infections; Z86.19 Personal history of other infectious and parasitic diseases; Z90.710 Acquired absence of both cervix and uterus; Z98.890 Other specified postprocedural states; Z88.8 Allergy status to other drugs, medicaments and biological substances; Z91.041 Radiographic dye allergy status; Z81.8 Family history of other mental and behavioral disorders; Z82.49 Family history of ischemic heart disease and other diseases of the circulatory system
CPT/HCPCS: 80061; 80178; 80306; 82075; 83036; 84443; 85025; 99285

== ENCOUNTER → 2018-08-12 | Outpatient (CLI) | payer MEDICARE ==
[2018-08-12 20:50] LABS: Albumin 4.5 g/dL (3.80-4.90); Albumin/Globulin Ratio 2.81 (1.60-3.17); Anion Gap 9.1 mmol/L (4.00-12.00); Calcium 9.3 mg/dL (8.7-10.3); Carbon Dioxide 22.9 mmol/L (21.6-31.8); Globulin 1.6 g/dL (1.6-3.3); LDL Cholesterol,Calculated 88.6 mg/dL (0.0-131.0); Lithium 0.6 mmol/L (1.0-1.2); Potassium 4.6 mmol/L (3.5-5.5); T4, Free (Free Thyroxine) 0.9 ng/dL (0.80-1.80); Total Bilirubin 0.3 mg/dL (0.3-1.2); Total Protein 6.1 g/dL (6.2-8.2); VLDL Calculation 22.4 mg/dL (5.00-40.00)
[2018-08-12 21:39] LABS: Hemoglobin A1C 5.5 % (4.0-6.0)
== END | disposition home or self-care (01) ==
LOC: LABWHC1 10:26
PROVIDERS: ATTEND Psychiatry & Neurology Psychiatry
DX: R25.1 Tremor, unspecified (principal); Z51.81 Encounter for therapeutic drug level monitoring; Z79.899 Other long term (current) drug therapy
CPT/HCPCS: 36415; 80053; 80061; 80178; 83036; 84439; 84443

== ENCOUNTER → 2018-10-27 | Outpatient (CLI) | payer MEDICARE ==
--- NOTE | 2018-10-29 07:52 | MM ---
Reason for exam: screening (asymptomatic). Last mammogram was performed 1 year ago. History: Patient is nulliparous. Physical Findings: A clinical breast exam by your physician is recommended on an annual basis and results should be correlated with mammographic findings. MG 3D Screening Mammo W/Cad Bilateral CC and MLO view(s) were taken. Prior study comparison: October 22, 2017, bilateral MG 3d screening mammo w/cad. September 25, 2016, mammogram, performed at [facility]. The breast tissue is extremely dense which could obscure a lesion on mammography. Benign appearing calcifications in the right breast. No significant changes when compared with prior studies. ASSESSMENT: Benign, BI-RAD 2 RECOMMENDATION: Routine screening mammogram of both breasts in 1 year.
== END | disposition home or self-care (01) ==
LOC: RADMAMWWP 14:15
PROVIDERS: ATTEND Obstetrics & Gynecology
DX: Z12.31 Encounter for screening mammogram for malignant neoplasm of breast (principal)
CPT/HCPCS: 77063; 77067

== ENCOUNTER → 2018-12-09 | Outpatient (CLI) | payer MEDICARE ==
--- NOTE | 2018-12-09 14:51 | BD ---
EXAMINATION TYPE: Axial Bone Density DATE OF EXAM: 12/09/2018 COMPARISON: None CLINICAL HISTORY: M 85.0 Height: 63 inches Weight: 119 pounds FRAX RISK QUESTIONS: Alcohol (3 or more units per day): no Family History (Parent hip fracture): no Glucocorticoids (More than 3mos): no (Ex: prednisone, prednisolone, methylprednisolone, dexamethasone, and hydrocortisone). History of Fracture in Adulthood: no Secondary Osteoporosis: 1. Type 1 Diabetes: no 2. Hyperthyroidism: no 3. Menopause before 45: yes 4. Malnutrition: no 5. Chronic liver disease: no Rheumatoid Arthritis: no Current Tobacco Use: no RISK FACTORS HISTORY OF: Family History of Osteoporosis: no Active: yes Diet low in dairy products/other sources of calcium: no Postmenopausal woman: yes Take estrogen and/or progesterone medications: yes How long: since age 38 Lost more than 2 inches in height since high school: no Frequent falls: no Poor Health: no, fair Hyperparathyroidism: no Adrenal Insufficiency: no MEDICATIONS: Prednisone or other steroids: no Thyroid Medications: no Osteoporosis Medications:no Additional Medications: calcium & vitamin D , antidepressants Additional History: EXAM MEASUREMENTS: Bone mineral densitometry was performed using the [employer] System. Bone mineral density as measured about the Lumbar spine is: ----- L1-L4(G/cm2): 1.053 T Score Values are as follows: ----- L2: -1.2 ----- L3: -1.5 ----- L4: -0.6 ----- L1-L4: -1.1 Bone mineral density not previously done at this facility; done elsewhere Bone mineral density about the R hip (g/cm2): 0.846 Bone mineral density about the L hip (g/cm2): 0.900 T Score values are as follows: -----R Neck: -1.4 -----L Neck: -1.0 -----R Total: -1,2 -----L Total: -1.4 Bone mineral density not previously done at this facility, done elsewhere IMPRESSION: Osteopenia (T Score between -2.5 and -1). There is slightly increased risk of fracture and the patient may be considered for treatment. Re-Screen 2-5 years. NOTE: T-SCORE=SD OF THE YOUNG ADULT MEAN.
== END ==
LOC: RADBDWWP 13:12
PROVIDERS: ATTEND Obstetrics & Gynecology
DX: M85.80 Other specified disorders of bone density and structure, unspecified site (principal); Z78.0 Asymptomatic menopausal state
CPT/HCPCS: 77080

== ENCOUNTER → 2018-12-30 | Outpatient (CLI) | payer MEDICARE ==
[2018-12-30 13:16] LABS: HCT 42.7 % (34.0-46.0); HGB 13.5 gm/dL (11.4-16.0); MCHC 31.6 g/dL (31.0-37.0); MCV 98.1 fL (80.0-100.0); Mean Platelet Volume 7.6; Platelet Count 210 k/uL (150-450); RBC 4.35 m/uL (3.80-5.40); RDW 12.8 % (11.5-15.5); WBC 4.8 k/uL (3.8-10.6)
[2018-12-30 19:52] LABS: African American GFR (CKD) 104.7 (60.0-200.0); Albumin 4.5 g/dL (3.80-4.90); Albumin/Globulin Ratio 2.65 (1.60-3.17); Anion Gap 6.1 mmol/L (4.00-12.00); BUN/Creat Ratio 16.25 Ratio (12.00-20.00); Calcium 9.3 mg/dL (8.7-10.3); Carbon Dioxide 27.9 mmol/L (21.6-31.8); Globulin 1.7 g/dL (1.6-3.3); Lithium 0.7 mmol/L (0.5-1.2); Magnesium 2.1 mg/dL (1.5-2.4); Potassium 4.2 mmol/L (3.5-5.5); Total Bilirubin 0.2 mg/dL (0.3-1.2); Total Protein 6.2 g/dL (6.2-8.2)
[2018-12-30 22:39] LABS: Hemoglobin A1C 4.9 % (4.0-6.0)
[2018-12-31 17:25] LABS: Chol/HDL Ratio 2.42; LDL Cholesterol,Calculated 114.6 mg/dL (0.0-131.0); VLDL Calculation 13.4 mg/dL (5.00-40.00)
== END | disposition home or self-care (01) ==
LOC: LABWHC1 12:34
PROVIDERS: ATTEND Family Medicine
DX: E78.5 Hyperlipidemia, unspecified (principal)
CPT/HCPCS: 36415; 80053; 80061; 80178; 82306; 83036; 83735; 84443; 85027

== ENCOUNTER → 2019-03-25 | Outpatient (CLI) | payer MEDICARE ==
[2019-03-25 19:34] LABS: Lithium 0.6 mmol/L (0.5-1.2)
== END | disposition home or self-care (01) ==
LOC: LABWHC1 11:57
PROVIDERS: ATTEND Psychiatry & Neurology Psychiatry
DX: Z51.81 Encounter for therapeutic drug level monitoring (principal); Z79.899 Other long term (current) drug therapy
CPT/HCPCS: 36415; 80178; 84439; 84443

== ENCOUNTER → 2019-08-22 | Outpatient (CLI) | payer MEDICARE ==
[2019-08-22 14:05] LABS: HCT 43.1 % (34.0-46.0); HGB 13.6 gm/dL (11.4-16.0); MCHC 31.5 g/dL (31.0-37.0); MCV 98.4 fL (80.0-100.0); Mean Platelet Volume 7.8; Platelet Count 266 k/uL (150-450); RBC 4.38 m/uL (3.80-5.40)
[2019-08-22 21:16] LABS: African American GFR (CKD) 90.1 (60.0-200.0); Anion Gap 7.8 mmol/L (4.00-12.00); Carbon Dioxide 26.2 mmol/L (21.6-31.8); Chol/HDL Ratio 2.59; LDL Cholesterol,Calculated 132.8 mg/dL (0.0-131.0); Non-African American GFR(CKD) 77.8 (60.0-200.0); VLDL Calculation 16.2 mg/dL (5.00-40.00)
== END | disposition home or self-care (01) ==
LOC: LABWHC1 12:18
PROVIDERS: ATTEND Internal Medicine Cardiovascular Disease
DX: E78.2 Mixed hyperlipidemia (principal)
CPT/HCPCS: 36415; 80051; 80061; 82565; 84450; 84460; 84520; 85027

== ENCOUNTER → 2020-03-12 | Outpatient (CLI) | payer MEDICARE ==
[2020-03-12 20:23] LABS: African American GFR (CKD) 103.9 (60.0-200.0); Chol/HDL Ratio 2.19; Lithium 1.1 mmol/L (0.5-1.2); Non-African American GFR(CKD) 89.7 (60.0-200.0)
[2020-03-12 21:07] LABS: Hemoglobin A1C 5.2 % (4.0-6.0)
== END | disposition home or self-care (01) ==
LOC: LABWHC1 12:18
PROVIDERS: ATTEND Psychiatry & Neurology Psychiatry
DX: Z51.81 Encounter for therapeutic drug level monitoring (principal); Z79.899 Other long term (current) drug therapy
CPT/HCPCS: 36415; 80061; 80178; 82565; 82947; 83036; 84439; 84443; 84520

== ENCOUNTER → 2020-07-04 | Outpatient (CLI) | payer MEDICARE ==
[2020-07-05 20:59] LABS: T4, Free (Free Thyroxine) 1.1 ng/dL (0.80-1.80)
[2020-07-05 21:03] LABS: African American GFR (CKD) 78.8 (60.0-200.0); Lithium 0.8 mmol/L (0.5-1.2)
== END | disposition home or self-care (01) ==
LOC: LABWHC1 13:02
PROVIDERS: ATTEND Psychiatry & Neurology Psychiatry
DX: Z79.899 Other long term (current) drug therapy (principal)
CPT/HCPCS: 36415; 80178; 82565; 84439; 84443; 84520

== ENCOUNTER → 2020-08-15 | Outpatient (CLI) | payer MEDICARE ==
[2020-08-15 14:24] LABS: HCT 43.8 % (34.0-46.0); HGB 13.5 gm/dL (11.4-16.0); MCH 29.6 pg (25.0-35.0); MCHC 30.9 g/dL (31.0-37.0); Mean Platelet Volume 7.8; Platelet Count 265 k/uL (150-450); RBC 4.56 m/uL (3.80-5.40); RDW 13.3 % (11.5-15.5); WBC 4.7 k/uL (3.8-10.6)
[2020-08-15 15:54] LABS: Lymphocytes # (M) 2.02 k/uL (1.0-4.8); Monocytes # (M) 0.28 k/uL (0-1.0); Neutrophils % (M) 51 %; Nucleated Red Blood Cells 0 /100 WBC (0-0); Total Cells Counted 100
== END | disposition home or self-care (01) ==
LOC: LABWHC1 12:32
PROVIDERS: ATTEND Physician Assistant Medical
DX: D72.819 Decreased white blood cell count, unspecified (principal)
CPT/HCPCS: 36415; 85027

== ENCOUNTER → 2020-12-14 | Outpatient (CLI) | payer MEDICARE ==
[2020-12-14 20:49] LABS: HCT 44.8 % (37.2-46.3); HGB 13.6 g/dL (12.0-15.0); MCH 30.1 pg (27.0-32.0); MCHC 30.4 g/dL (32.0-37.0); MCV 99.1 fL (80.0-97.0); Mean Platelet Volume 10.7 fL (9.5-12.2); Platelet Count 291 X 10*3/uL (140-440); RBC 4.52 X 10*6/uL (4.10-5.20); RDW 13.6 % (11.5-14.5); WBC 4.39 X 10*3/uL (4.50-10.00)
[2020-12-15 20:17] LABS: ALT 34 U/L (8-44); AST 22 U/L (13-35); Albumin 4.7 g/dL (3.8-4.9); Albumin/Globulin Ratio 2.13 (1.60-3.17); Alkaline Phosphatase 76 U/L (41-126); BUN/Creat Ratio 19.66 Ratio (12.00-20.00); Blood Urea Nitrogen 11.4 mg/dL (9.0-27.0); Calcium 9.6 mg/dL (8.7-10.3); Carbon Dioxide 22.1 mmol/L (21.6-31.8); Chloride 107 mmol/L (96-109); Chol/HDL Ratio 2.81 Ratio; Globulin 2.2 g/dL (1.6-3.3); Glucose 105 mg/dL (70-110); LDL Cholesterol,Calculated 131.2 mg/dL (0.0-131.0); Non-African American GFR(CKD) 111.3 (60.0-200.0); Potassium 5.1 mmol/L (3.5-5.5); Sodium 141 mmol/L (135-145); Total Bilirubin <0.20 mg/dL (0.30-1.20); Total Protein 6.9 g/dL (6.2-8.2)
== END | disposition home or self-care (01) ==
LOC: LABWHC1 13:03
PROVIDERS: ATTEND Family Medicine
DX: E28.39 Other primary ovarian failure (principal); R53.83 Other fatigue; R42 Dizziness and giddiness
CPT/HCPCS: 36415; 80053; 80061; 80178; 83001; 83002; 84439; 84443; 84481; 85027

== ENCOUNTER → 2021-07-18 | Outpatient (CLI) | payer MEDICARE ==
[2021-07-18 19:46] LABS: HGB 13.2 g/dL (12.0-15.0); MCH 30.1 pg (27.0-32.0); MCHC 30.7 g/dL (32.0-37.0); MCV 97.9 fL (80.0-97.0); Mean Platelet Volume 11.3 fL (9.5-12.2); NRBC Per 100 WBC 0 /100 WBCS (0.0-0.0); Platelet Count 270 X 10*3/uL (140-440); RBC 4.39 X 10*6/uL (4.10-5.20); RDW 14.2 % (11.5-14.5); WBC 5.69 X 10*3/uL (4.50-10.00)
[2021-07-18 19:50] LABS: ALT 33 U/L (8-44); AST 22 U/L (13-35); African American GFR (CKD) 120.4 (60.0-200.0); Albumin 4.6 g/dL (3.8-4.9); Albumin/Globulin Ratio 2.09 (1.60-3.17); Alkaline Phosphatase 83 U/L (41-126); BUN/Creat Ratio 16.43 Ratio (12.00-20.00); Blood Urea Nitrogen 11.5 mg/dL (9.0-27.0); Calcium 9.5 mg/dL (8.7-10.3); Carbon Dioxide 24.6 mmol/L (20.0-27.5); Chloride 107 mmol/L (96-109); Chol/HDL Ratio 2.82 Ratio; Estradiol 27.3 pg/mL; Globulin 2.2 g/dL (1.6-3.3); Glucose 101 mg/dL (70-110); LDL Cholesterol,Calculated 79.6 mg/dL (0.0-131.0); Magnesium 2.5 mg/dL (1.5-2.4); Non-African American GFR(CKD) 103.9 (60.0-200.0); Potassium 5.3 mmol/L (3.5-5.5); Sodium 140 mmol/L (135-145); Total Protein 6.8 g/dL (6.2-8.2)
== END | disposition home or self-care (01) ==
LOC: LABWHC1 12:52
PROVIDERS: ATTEND Physician Assistant
DX: F31.9 Bipolar disorder, unspecified (principal); E03.9 Hypothyroidism, unspecified; E28.39 Other primary ovarian failure; E78.5 Hyperlipidemia, unspecified
CPT/HCPCS: 36415; 80053; 80061; 80178; 82670; 83735; 84144; 84443; 85027

== ENCOUNTER → 2021-09-14 | Outpatient (CLI) | payer MEDICARE ==
--- NOTE | 2021-09-15 02:30 | MR ---
EXAMINATION TYPE: MR cervical spine wo con DATE OF EXAM: 09/14/2021 COMPARISON: None HISTORY: CERVICALGIA, PAIN, STIFFNESS, LACK OF ROTATION Multiplanar multiecho imaging of the cervical spine with no contrast. Cervical vertebra have normal alignment. Disc spaces are fairly normal. There is a minimal posterior disc bulge at C4-5 and C5-6. There is developmentally large spinal canal. No spinal stenosis. Cervical spinal cord has normal signal pattern. No edema. No cervical paraspinal mass. The brainstem is intact. Prevertebral soft tissues appear normal. IMPRESSION: Minimal posterior disc bulging. No fracture seen. No spinal stenosis.
== END | disposition home or self-care (01) ==
LOC: RADMRIMAIN 12:20
PROVIDERS: ATTEND Family Medicine
DX: M50.322 Other cervical disc degeneration at C5-C6 level (principal)
CPT/HCPCS: 72141

== ENCOUNTER → 2021-12-05 | Outpatient (CLI) | payer MEDICARE ==
[~2021-12-05] MED LIST: IODINE/POTASS IOD (LUGOLS) BOTTLE ONE
--- NOTE | 2021-12-06 14:58 | NM ---
EXAMINATION TYPE: NM DatScan Brain SPECT DATE OF EXAM: 12/05/2021 COMPARISON: NONE HISTORY: G 25.0 TECHNIQUE: 10 drops of Lugol's solution was administered 1 hour prior to injection as a thyroid bloc juan alberto agent. After the administration of 4.56 mCi I-123 Ioflupane DaTscan. Images obtained 3 hours p ost injection. SPECT images of the brain were acquired with axial and coronal reconstructions. FINDINGS: Uptake along the striata is symmetric and normal bilaterally IMPRESSION: Normal PERI scan
== END | disposition home or self-care (01) ==
LOC: RADNMMAIN 10:49
PROVIDERS: ATTEND Family Medicine
DX: G25.0 Essential tremor (principal)
CPT/HCPCS: 78803; A9584

== ENCOUNTER → 2022-01-06 | Outpatient (CLI) | payer MEDICARE ==
--- NOTE | 2022-01-07 09:14 | MM ---
Reason for Exam: Screening (asymptomatic). Last mammogram was performed 1 year(s) and 1 month(s) ago. Patient History: Menarche at age 11. Patient has no children. Hysterectomy at age 36. Currently using Estrogen, starting at age 36. Risk Values: Isidra 5 year model risk: 1.0%. NCI Lifetime model risk: 11.4%. Prior Study Comparison: 10/27/2018 Bilateral Screening Mammogram, [facility]. 11/09/2019 Bilateral MG screening mammo w CAD - 2, [facility]. 11/28/2020 Bilateral MG screening mammo w CAD - 2, [facility]. Tissue Density: The breast tissue is heterogeneously dense. This may lower the sensitivity of mammography. Findings: Analyzed By CAD. Areas of asymmetric density associated with the dense breast tissue appear unchanged from prior exams. No persisting of modality and 3-D images. No significant change from prior exams. Overall Assessment: Benign, BI-RAD 2 Management: Screening Mammogram of both breasts in 1 year. 1. Patient should continue monthly self breast exams. 2. A clinical breast exam by your physician is recommended on an annual basis. 3. This exam should not preclude additional follow-up of suspicious palpable abnormalities. Electronically signed and approved by: Morris Beach M.D. Radiologist
== END | disposition home or self-care (01) ==
LOC: RADMAMWWP 13:57
PROVIDERS: ATTEND Obstetrics & Gynecology
DX: Z12.31 Encounter for screening mammogram for malignant neoplasm of breast (principal)
CPT/HCPCS: 77063; 77067

== ENCOUNTER → 2022-04-04 | Outpatient (CLI) | payer MEDICARE ==
[2022-04-04 22:32] LABS: HCT 41.3 % (37.2-46.3); HGB 12.6 g/dL (12.0-15.0); MCH 30.1 pg (27.0-32.0); MCHC 30.5 g/dL (32.0-37.0); MCV 98.6 fL (80.0-97.0); Mean Platelet Volume 10.9 fL (9.5-12.2); NRBC Per 100 WBC 0 /100 WBCS (0.0-0.0); Platelet Count 299 X 10*3/uL (140-440); RBC 4.19 X 10*6/uL (4.10-5.20); RDW 14.3 % (11.5-14.5); WBC 4.64 X 10*3/uL (4.50-10.00)
[2022-04-04 23:22] LABS: ALT 38 U/L (8-44); AST 26 U/L (13-35); African American GFR (CKD) 112.4 (60.0-200.0); Albumin 4.6 g/dL (3.8-4.9); Albumin/Globulin Ratio 2.34 (1.60-3.17); Alkaline Phosphatase 75 U/L (41-126); BUN/Creat Ratio 12.91 Ratio (12.00-20.00); Blood Urea Nitrogen 9.6 mg/dL (9.0-27.0); Calcium 9.5 mg/dL (8.7-10.3); Carbon Dioxide 21.6 mmol/L (20.0-27.5); Chloride 106 mmol/L (96-109); Chol/HDL Ratio 2.46 Ratio; Glucose 97 mg/dL (70-110); LDL Cholesterol,Calculated 101.6 mg/dL (0.0-131.0); Potassium 4.8 mmol/L (3.5-5.5); Sodium 140 mmol/L (135-145); Total Bilirubin <0.15 mg/dL (0.30-1.20); Total Protein 6.5 g/dL (6.2-8.2); VLDL Calculation 17.18 mg/dL (5.00-40.00)
== END | disposition home or self-care (01) ==
LOC: LABWHC1 13:45
PROVIDERS: ATTEND Nurse Practitioner Family
DX: E78.5 Hyperlipidemia, unspecified (principal); E03.9 Hypothyroidism, unspecified; Z79.899 Other long term (current) drug therapy
CPT/HCPCS: 36415; 80053; 80061; 80178; 84439; 84443; 84480; 85027

== ENCOUNTER → 2022-06-02 | Outpatient (CLI) | payer MEDICARE ==
--- NOTE | 2022-06-02 12:46 | CA ---
Exercise Nuclear Stress Test Report Name: Sarah Cardoza Exam Date: 06/02/2022 11:05 Exam Location: [place] Stress Ht (in): 63 Wt (lb): 134 BSA: 1.63 Ordering Phys: Moni You DO Referring Phys: Maria C Henriquez PAC Technologist: Gennaro Santa Age: 46 Gender: F : 1975 Procedure CPT: Indications: R07.89 chest pain ICD-10 Codes: Patient History: Medications: LITHIUM, MIZTAZOPINE, VITD, VENLAFAXINE, ATORVASTATIN, LEVOTHYROXINE Meds past 24 hrs: Pretest Chest Pain: STRESS TEST Tyler Protocol Exercise Duration (min:sec): 07:[address] Depressions (mm): Angina Score: Noel Score: Resting HR (bpm): 86 Peak HR (bpm): 164 Resting BP (mmHg): 122 / 82 Peak BP (mmHg): 157 / 91 MPHR: 174 Target HR: 148 % MPHR: 94 METS: 8.9 Total Dose: Peak Dose: Atropine: Double Product: 36408 BP Response: Stress Termination: Reached target heart rate Stress Symptoms: SLIGHT PAIN IN CHEST Stress Summary: The patient's target heart rate was achieved ECG ANALYSIS Resting ECG: Sinus rhythm. Incomplete right bundle branch block. No arrhythmias. Normal repolarization. Stress ECG: No ECG evidence of ischemia with exercise. CONCLUSIONS Normal ST segment response to stress. Nuclear test results to follow. Dr. Jake Long MD (Electronically Signed) Final Date: 02 June 2022 12:45
--- NOTE | 2022-06-02 14:33 | NM ---
EXAMINATION TYPE: NM stress cardiolite complete DATE OF EXAM: 06/02/2022 COMPARISON: NONE HISTORY: Chest pain and difficulty in breathing. History of hypercholesteremia TECHNIQUE: After the intravenous administration of 9.8 mCi Tc 99m Sestamibi - Rest images obtained 4 5 minutes post injection. The patient exercised using a SUSAN protocol and 1 minute prior to peak e xercise was injected with 25.2 mCi Tc 99m Sestamibi - Stress images obtained 50 minutes post injectio n. FINDINGS: Targeted heart rate was achieved during performance of the study. Review of stress and rest SPECT harry ges demonstrates no distinct perfusion abnormality. Gated analysis shows normal wall motion with an estimated left ventricular ejection fraction of 64 %. IMPRESSION: No scintigraphic evidence for reversible ischemia
== END | disposition home or self-care (01) ==
LOC: RADNMMAIN 08:25
PROVIDERS: ATTEND Family Medicine
DX: R07.89 Other chest pain (principal); E78.00 Pure hypercholesterolemia, unspecified
CPT/HCPCS: 93017; 78452; A9500

== ENCOUNTER → 2023-01-23 | Outpatient (CLI) | payer MEDICARE ==
--- NOTE | 2023-01-26 14:34 | MM ---
Reason for Exam: Screening (asymptomatic). Last mammogram was performed 1 year(s) and 1 month(s) ago. Indicated Problems: Lump or thickening of the left side. Patient History: Menarche at age 11. Patient has no children. Hysterectomy at age 36. Currently using Estrogen, starting at age 36. Risk Values: Isidra 5 year model risk: 1.1%. NCI Lifetime model risk: 11.3%. Prior Study Comparison: 11/09/2019 Bilateral MG screening mammo w CAD - 2, [facility]. 11/28/2020 Bilateral MG screening mammo w CAD - 2, [facility]. 01/06/2022 Bilateral MG 3D screening mammo w/cad, [facility]. Tissue Density: The breast tissue is heterogeneously dense. This may lower the sensitivity of mammography. Findings: Analyzed By CAD. There is no suspicious group of microcalcifications or new suspicious mass in either breast. Overall Assessment: Benign, BI-RAD 2 Management: Screening Mammogram of both breasts in 1 year. . Patient should continue monthly self-breast exams. A clinical breast exam by your physician is recommended on an annual basis. This exam should not preclude additional follow-up of suspicious palpable abnormalities. Note on Isidra scores and lifetime risk: 1. A Isidra score greater than 3% is considered moderate risk. If this is the case, consider specialist referral to assess eligibility for a risk reducing agent. 2. If overall lifetime risk for the development of breast cancer is 20% or higher, the patient may qualify for future screening with alternating mammogram and breast MRI. Electronically signed and approved by: Garett Villatoro M.D. Radiologis
== END | disposition home or self-care (01) ==
LOC: RADMAMWWP 13:45
PROVIDERS: ATTEND Obstetrics & Gynecology
DX: Z12.31 Encounter for screening mammogram for malignant neoplasm of breast (principal)
CPT/HCPCS: 77063; 77067

== ENCOUNTER 2023-11-25 17:14 | Emergency (ER) | payer MEDICARE ==
[2023-11-25 17:46] VITALS: TEMP 98.2
--- NOTE | 2023-11-25 17:49 | ED ---
Abdominal Pain HPI - General Source: patient, RN notes reviewed Mode of arrival: ambulatory Limitations: no limitations <Irma Armando - Last Filed: 11/25/23 19:13> - General Source: patient, RN notes reviewed, old records reviewed <Jon Garza - Last Filed: 11/25/23 23:39> - General Chief Complaint: Abdominal Pain Stated Complaint: post op issues from 2015 Time Seen by Provider: 11/25/23 17:48 - History of Present Illness Initial Comments: Quick note: 48-year-old female presented to ER with a chief complaint of abdominal pain and distention. Patient underwent a Gage fundop[place] [address] Morin. Patient reports for the past couple of days she has noticed increasing abdominal distention and discomfort. She also reports f requent GERD. Denies any fevers or chills. Patient is reporting "loose fluffy" stools. Patient is concerned there is a complication with procedure. (Irma Armando) Patient is a 48-year-old female who presents emergency department with chronic abdominal pain symptoms. States it all stems from a hiatal hernia repair done multiple years ago. States she is having worsening bubbling sensation in her abdomen with burning sensation extending up her esophagus with nausea and vomiting. Has been ongoing for weeks. Possibly a little worse today. Presents for further evaluation. Is due to follow-up with a new surgeon outpatient. Denies chest pain, notes of breath. Denies any constipation or diarrhea. Presents for further evaluation. Has no urinary complaints. (Jon Garza) - Related Data Home Medications Medication Instructions Recorded Confirmed estradioL [Estrace] 1 mg PO HS 01/10/16 07/03/18 Previous Rx's Medication Instructions Recorded Mirtazapine [Remeron] 45 mg PO HS #0 tablet 07/08/18 Allergies Allergy/AdvReac Type Severity Reaction Status Date / Time adhesive Allergy Intermediate Itching Verified 11/25/23 17:46 aripiprazole [From Abilify] Allergy SWOLLEN Verified 11/25/23 17:46 LIPS IV contrast Allergy Itching Uncoded 11/25/23 17:46 Review of Systems ROS Other: All systems not noted in ROS Statement are negative. <Irma Armando - Last Filed: 11/25/23 19:13> ROS Other: All systems not noted in ROS Statement are negative. <Jon Garza - Last Filed: 11/25/23 23:39> ROS Statement: Those systems with pertinent positive or pertinent negative responses have been documented in the HPI. Review of Systems: CONST: Denies fever EYES: Denies blurry vision ENT: Denies nasal congestion C/V: Denies Chest pain RESP: Denies shortness of breath GI: Endorses burning abdominal pain : Denies dysuria SKIN: Denies rash. MSK: Denies joint pain. NEURO: Denies headache (Jon Garza) Past Medical History Additional Past Medical History / Comment(s): cystitis, depression, anxiety. FISTULA History of Any Multi-Drug Resistant Organisms: C-DIFF Date of last positivie culture/infection: 04/29/2014 MDRO Source:: stool AFTER SURGERY Past Surgical History: Hernia Repair, Hysterectomy, Tonsillectomy Past Anesthesia/Blood Transfusion Reactions: No Reported Reaction Past Psychological History: Anxiety, Depression Smoking Status: Never smoker Past Alcohol Use History: None Reported Past Drug Use History: None Reported - Past Family History Mother Family Medical History: No Reported History <Irma Armando - Last Filed: 11/25/23 19:13> General Exam Limitations: no limitations <Irma Armando - Last Filed: 11/25/23 19:13> <Jon Garza - Last Filed: 11/25/23 23:39> - General Exam Comments Initial Comments: Visual Physical Exam Vital signs reviewed General: Well-appearing, nontoxic, no acute distress. Head: Normocephalic, atraumatic Eyes: PERRLA, EOMI ENT: Airway patent Chest: Nonlabored breathing Skin: No visual rash, normal skin tone Neuro: Alert and oriented 3 Musculoskeletal: No gross abnormalities (Irma Armando) General: Appears in no acute distress. HEAD: Normal with no signs of head trauma. EYES: PERRLA, EOMI, conjunctiva normal, no discharge. ENT: Hearing grossly intact, normal oropharynx. RESPIRATORY: Clear breath sounds bilaterally. No wheezes, rales, or rhonchi. C/V: Regular rate and rhythm. S1 and S2 auscultated, no edema, peripheral pulses 2+ and intact throughout ABD: Abd is soft, nontender, nondistended EXT: Normal range of motion, no obvious deformity SKIN: No rashes or lesions observed on exposed skin. NEURO: Alert and oriented x 4. (Jon Garza) Course <Irma Armando - Last Filed: 11/25/23 19:13> Vital Signs 11/25/23 11/25/23 17:41 21:43 Temperature 98.2 F Pulse Rate 98 94 Respiratory 20 18 Rate Blood Pressure 135/85 144/85 O2 Sat by Pulse 99 99 Oximetry - Reevaluation(s) Reevaluation #1: 11/25/23 19:13 CT premedications ordered due to iodine allergy. Patient is refusing Solu- Medrol as it makes her have hallucinations and "feel funny". Spoke with CT at that time and they are agreeable to proceed with scan. (Irma Armando) Medical Decision Making - Lab Data Result diagrams: 11/25/23 18:37 <Irma Armando - Last Filed: 11/25/23 19:13> - Lab Data Result diagrams: 11/25/23 18:37 11/25/23 19:54 - EKG Data -: EKG Interpreted by Me <Jon Garza - Last Filed: 11/25/23 23:39> - Medical Decision Making I performed the quick note portion of this chart. Electronically signed by Irma Armando PA-C (Irma Armando) Was pt. sent in by a medical professional or institution (VELMA Sanchez, WAREHOUSE LOGISTICS MANAGER, urgent care, hospital, or jail...) When possible be specific @ -No Did you speak to anyone other than the patient for history (EMS, parent, family, police, friend...)? What history was obtained from this source @ -No Did you review nursing and triage notes (agree or disagree)? Why? @ -I reviewed and agree with nursing and triage notes Were old charts reviewed (outside hosp., previous admission, EMS record, old EKG, old radiological studies, urgent care reports/EKG's, jail records)? Report findings @ -Old EKG reviewed including from December 2013 which revealed incomplete right bundle branch block then. Differential Diagnosis (chest pain, altered mental status, abdominal pain women, abdominal pain men, vaginal bleeding, weakness, fever, dyspnea, syncope, headach e, dizziness, GI bleed, back pain, seizure, CVA, palpatations, mental health, musculoskeletal)? @ -Differential Abdominal Pain Women: Appendicitis, Cholecystitis, diverticulosis, ischemic bowel, pancreatitis, hepatitis, UTI, gastroenteritis, AAA, incarcerated hernia, bowel obstruction, constipation, inflammatory bowel, hepatitis, peptic ulcer disease, splenic infarction, perforated viscus, vulvitis, ovarian torsion, PID, kidney stone, placenta abruption, this is not meant to be an all-inclusive list EKG interpreted by me (3pts min.). @ -As above X-rays interpreted by me (1pt min.). @ -None done CT interpreted by me (1pt min.). @ -CT abdomen pelvis reveals postop findings but no obvious acute process. U/S interpreted by me (1pt. min.). @ -None done What testing was considered but not performed or refused? (CT, X-rays, U/S, labs)? Why? @ -None What meds were considered but not given or refused? Why? @ -None Did you discuss the management of the patient with other professionals ( professionals i.e. , PA, WAREHOUSE LOGISTICS MANAGER, lab, RT, psych nurse, social media content specialist, undercoat sprayer, teacher, consular officer, hospice case manager)? Give summary @ -No Was smoking cessation discussed for >3mins.? @ -No Was critical care preformed (if so, how long)? @ -No Were there social determinants of health that impacted care today? How? (Homelessness, low income, unemployed, alcoholism, drug addiction, transportation, low edu. Level, literacy, decrease access to med. care, residential, rehab)? @ -No Was there de-escalation of care discussed even if they declined (Discuss DNR or withdrawal of care, Hospice)? DNR status @ -No What co-morbidities impacted this encounter? (DM, HTN, Smoking, COPD, CAD, Cancer, CVA, ARF, Chemo, Hep., AIDS, mental health diagnosis, sleep apnea, morbid obesity)? @ -History of Niesen fundoplication and hiatal hernia repair Was patient admitted / discharged? Hospital course, mention meds given and route, prescriptions, significant lab abnormalities, going to OR and other pertinent info. @ -Patient presents with acute on chronic acid reflux symptoms. Have been ongoing for weeks. Is due to see his surgeon outpatient but presents for further evaluation. History of Niesen fundoplication and hiatal hernia. Vitals within acceptable limits. Will obtain abdominal workup and atypical ACS workup. Patient in agreement this plan. Patient symptomatically treated with GI cocktail, IV fluids, as well as precontrast IV medications. EKG showed no signs of acute ischemia. Laboratory studies are unremarkable including undetectable troponin. CT imaging negative for any obvious acute fin dings. I discussed the results with the patient. She will be discharged home at this time with instructions to follow-up with Dr. Liao, her new surgeon. She was in agreement this plan. Strict return precautions discussed. Recommended restarting Protonix or Pepcid at home. Patient was in agreement this plan. I instructed the patient to follow up with their PCP in the next 1-3 days. I explained that the patient should return to the emergency department if they experience any worsening symptoms. Strict return precautions were discussed with the patient. The patient expressed understanding of these instructions. I answered all questions that the patient had. The patient was discharged home in good condition with their prescriptions and follow up information. Undiagnosed new problem with uncertain prognosis? @ -No Drug Therapy requiring intensive monitoring for toxicity (Heparin, Nitro, Insulin, Cardizem)? @ -No Were any procedures done? @ -No Diagnosis/symptom? @ -GERD, abdominal pain of unknown etiology Acute, or Chronic, or Acute on Chronic? @ -Acute Uncomplicated (without systemic symptoms) or Complicated (systemic symptoms)? @ -Complicated Side effects of treatment? @ -No Exacerbation, Progression, or Severe Exacerbation? @ -No Poses a threat to life or bodily function? How? (Chest pain, [place], [place], pneumonia, PE, COPD, DKA, ARF, appy, cholecystitis, CVA, Diverticulitis, Homicidal, Suicidal, threat to staff... and all critical care pts) @ -Unlikely (Jon Garza) - Lab Data Lab Results 11/25/23 11/25/23 11/25/23 Range/Units 18:37 18:37 19:54 WBC 6.6 (3.8-10.6) k/uL RBC 4.68 (3.80-5.40) m/uL Hgb 14.9 (11.4-16.0) gm/dL Hct 44.5 (34.0-46.0) % MCV 95.2 (80.0-100.0) fL MCH 31.8 (25.0-35.0) pg MCHC 33.4 (31.0-37.0) g/dL RDW 13.4 (11.5-15.5) % Plt Count 258 (150-450) k/uL MPV 8.4 Neutrophils % 48 % Lymphocytes % 40 % Monocytes % 4 % Eosinophils % 6 % Basophils % 1 % Neutrophils # 3.2 (1.3-7.7) k/uL Lymphocytes # 2.6 (1.0-4.8) k/uL Monocytes # 0.3 (0-1.0) k/uL Eosinophils # 0.4 (0-0.7) k/uL Basophils # 0.0 (0-0.2) k/uL Sodium (137-145) mmol/L Potassium (3.5-5.1) mmol/L Chloride (98-107) mmol/L Carbon Dioxide (22-30) mmol/L Anion Gap mmol/L BUN (7-17) mg/dL Creatinine (0.52-1.04) mg/dL Est GFR (CKD-EPI)AfAm (>60 ml/min/1.73 sqM) Est GFR (CKD-EPI)NonAf (>60 ml/min/1.73 sqM) Glucose (74-99) mg/dL Plasma Lactic Acid Telly 1.2 (0.7-2.0) mmol/L Calcium (8.4-10.2) mg/dL Total Bilirubin (0.2-1.3) mg/dL AST (14-36) U/L ALT (4-34) U/L Alkaline Phosphatase (38-126) U/L Troponin I <0.012 (0.000-0.034) ng/mL Total Protein (6.3-8.2) g/dL Albumin (3.5-5.0) g/dL Amylase (30-110) U/L Lipase (23-300) U/L 11/25/23 Range/Units 19:54 WBC (3.8-10.6) k/uL RBC (3.80-5.40) m/uL Hgb (11.4-16.0) gm/dL Hct (34.0-46.0) % MCV (80.0-100.0) fL MCH (25.0-35.0) pg MCHC (31.0-37.0) g/dL RDW (11.5-15.5) % Plt Count (150-450) k/uL MPV Neutrophils % % Lymphocytes % % Monocytes % % Eosinophils % % Basophils % % Neutrophils # (1.3-7.7) k/uL Lymphocytes # (1.0-4.8) k/uL Monocytes # (0-1.0) k/uL Eosinophils # (0-0.7) k/uL Basophils # (0-0.2) k/uL Sodium 135 L (137-145) mmol/L Potassium 4.5 (3.5-5.1) mmol/L Chloride 105 (98-107) mmol/L Carbon Dioxide 22 (22-30) mmol/L Anion Gap 8 mmol/L BUN 13 (7-17) mg/dL Creatinine 0.66 (0.52-1.04) mg/dL Est GFR (CKD-EPI)AfAm >90 (>60 ml/min/1.73 sqM) Est GFR (CKD-EPI)NonAf >90 (>60 ml/min/1.73 sqM) Glucose 98 (74-99) mg/dL Plasma Lactic Acid Telly (0.7-2.0) mmol/L Calcium 8.9 (8.4-10.2) mg/dL Total Bilirubin 0.5 (0.2-1.3) mg/dL AST 28 (14-36) U/L ALT 27 (4-34) U/L Alkaline Phosphatase 63 (38-126) U/L Troponin I (0.000-0.034) ng/mL Total Protein 6.4 (6.3-8.2) g/dL Albumin 4.0 (3.5-5.0) g/dL Amylase 51 (30-110) U/L Lipase 93 (23-300) U/L - EKG Data EKG Comments: 12-lead Electrocardiogram Interpretation Note EKG was reviewed and interpreted by myself. 12-lead ECG performed at 1835 is interpreted by me as revealing normal sinus rhythm with incomplete right bundle branch block at a rate of 85 beats per minute. [place] is normal. ID interval is 142 ms, QRS duration is 96 ms, QTc is 426 ms.. There were no ST or T wave abnormalities to suggest myocardial ischemia or injury. R wave progression across the precordium was satisfactory. By my interpretation this EKG is non- diagnostic for acute ischemia. (Jon Garza) Disposition <Irma Armando - Last Filed: 11/25/23 19:13> Is patient prescribed a controlled substance at d/c from ED?: No Time of Disposition: 21:35 <Jon Garza - Last Filed: 11/25/23 23:39> Clinical Impression: GERD (gastroesophageal reflux disease), Abdominal pain of unknown etiology Disposition: HOME SELF-CARE Condition: Good Instructions (If sedation given, give patient instructions): Abdominal Pain (ED) Referrals: Moni You DO [Primary Care Provider] - 1-2 days
[2023-11-25 18:46] LABS: Basophils % (A) 1 %; Eosinophils # (A) 0.4 k/uL (0-0.7); Eosinophils % (A) 6 %; HCT 44.5 % (34.0-46.0); HGB 14.9 gm/dL (11.4-16.0); Lymphocytes # (A) 2.6 k/uL (1.0-4.8); Lymphocytes % (A) 40 %; MCH 31.8 pg (25.0-35.0); MCHC 33.4 g/dL (31.0-37.0); MCV 95.2 fL (80.0-100.0); Mean Platelet Volume 8.4; Monocytes # (A) 0.3 k/uL (0-1.0); Monocytes % (A) 4 %; Neutrophils # (A) 3.2 k/uL (1.3-7.7); Neutrophils % (A) 48 %; Platelet Count 258 k/uL (150-450); RBC 4.68 m/uL (3.80-5.40); RDW 13.4 % (11.5-15.5); WBC 6.6 k/uL (3.8-10.6)
[2023-11-25] MEDS: methylPREDNISolone SOD SUCCI 125 MG/2 ML VIAL IV STA (19:14)
[2023-11-25] MEDS: diphenhydrAMINE 50 MG/ML 1 ML VIAL IVP STA (19:14)
[2023-11-25] MEDS: FAMOTIDINE 20 MG/2 ML VIAL IV STA (19:14)
[2023-11-25] MEDS: MAG HYDROX/AL HYDROX/SIMETH 30 ML, HYOSCYAMINE ELIXIR 10 ML, LIDOCAINE VISCOUS 2% 10 ML PO STA (20:07)
[2023-11-25] MEDS: ONDANSETRON 4 MG/2 ML VIAL IVP STA (20:08)
[2023-11-25 20:18] LABS: ALT 27 U/L (4-34); AST 28 U/L (14-36); African American GFR (CKD) >90 (>60 ml/min/1.73 sqM); Alkaline Phosphatase 63 U/L (38-126); Amylase 51 U/L (30-110); Anion Gap 8 mmol/L; Blood Urea Nitrogen 13 mg/dL (7-17); Calcium 8.9 mg/dL (8.4-10.2); Carbon Dioxide 22 mmol/L (22-30); Chloride 105 mmol/L (98-107); Glucose 98 mg/dL (74-99); Lipase 93 U/L (23-300); Non-African American GFR(CKD) >90 (>60 ml/min/1.73 sqM); Potassium 4.5 mmol/L (3.5-5.1); Sodium 135 mmol/L (137-145); Total Bilirubin 0.5 mg/dL (0.2-1.3); Total Protein 6.4 g/dL (6.3-8.2)
--- NOTE | 2023-11-25 21:09 | CT ---
EXAMINATION TYPE: CT abdomen pelvis w con CT DLP: 745.6 mGycm, Automated exposure control for dose reduction was used. DATE OF EXAM: 11/25/2023 7:53 PM COMPARISON: None CLINICAL INDICATION:Female, 48 years old with history of abd distention; Abdominal distention. TECHNIQUE: Standard CT of the abdomen and pelvis following the administration of 100 cc of Isovue 3 00 IV contrast material. Coronal and sagittal reformats were performed. Patient was premedicated for iodine allergy. FINDINGS: LOWER CHEST: Unremarkable ABDOMEN LIVER: Unremarkable GALLBLADDER AND BILE DUCTS: Unremarkable. PANCREAS: Unremarkable. SPLEEN: Unremarkable. ADRENAL GLANDS: Unremarkable. KIDNEYS AND URETERS: No evidence of hydronephrosis or renal calculus. The kidneys enhance symmetrical ly. Contrast is demonstrated within both collecting systems on the delayed phase. PELVIS BLADDER: Unremarkable REPRODUCTIVE: The uterus is surgically absent. ABDOMEN & PELVIS STOMACH AND BOWEL: Postsurgical changes at the GE junction from hernia repair. No focal wall thickeni ng and stranding inflammatory changes. The appendix is within normal limits. Mild colonic stool burde n. No evidence of bowel obstruction. PERITONEUM: No evidence of pneumoperitoneum or free fluid. VASCULATURE: No evidence of aortic aneurysm. MUSCULOSKELETAL: No acute osseous abnormalities. Degenerative disc disease at L4-L5. LYMPH NODES: No gross evidence for lymphadenopathy. SOFT TISSUE/ABDOMINAL WALL: Small fat filled umbilical hernia. IMPRESSION: No CT evidence for acute abdominal/pelvic process.
[2023-11-25 21:44] VITALS: BP 144/85; PULSE 94; RESP 18
== END 2023-11-25 21:44 | disposition home or self-care (01) ==
LOC: EC 17:14
CPT/HCPCS: 36415; 74177; 80053; 82150; 83605; 83690; 84484; 85025; 93005; 96374; 96375; 99284

== ENCOUNTER → 2023-11-25 | Outpatient (CLI) | payer MEDICARE ==
--- NOTE | 2023-11-25 19:25 | MR ---
EXAMINATION TYPE: MR lumbar spine wo con DATE OF EXAM: 11/25/2023 COMPARISON: None HISTORY: Low back thompson that radiates down left leg and right buttocks CONTRAST: 0 mL intravenous Gadavist. TECHNIQUE: Multiplanar, multisequence images of the lumbar spine were acquired. FINDINGS: Cord terminates at the L1 level. L5-S1: No significant disc bulge or disc herniation. No spinal canal stenosis. No foraminal stenosi s. . L4-L5: There is loss of disc height is normal. Disc desiccation is present. No residual disc bulge or focal disc herniation. No spinal canal stenosis is present. Mild left set hypertrophy is present. Mi ld to moderate right foraminal narrowing is present. Minimal left foraminal narrowing. L3-L4: No significant disc bulge or disc herniation. No spinal canal stenosis. No foraminal stenosi s. . L2-L3: No significant disc bulge or disc herniation. No spinal canal stenosis. No foraminal stenosi s. . L1-L2: No significant disc bulge or disc herniation. No spinal canal stenosis. No foraminal stenosi s. . T12-L1: No significant disc bulge or disc herniation. No spinal canal stenosis. No foraminal stenos is. . IMPRESSION: 1. Degenerative disc changes L4-5 without spinal canal stenosis. There is mild left and mild to moder ate right foraminal narrowing. Correlate with radicular symptoms.
== END | disposition home or self-care (01) ==
LOC: RADMRIMAIN 16:17
PROVIDERS: ATTEND Family Medicine
DX: M54.50 Low back pain, unspecified
CPT/HCPCS: 72148

== ENCOUNTER → 2024-03-11 | Outpatient (CLI) | payer MEDICARE ==
--- NOTE | 2024-03-11 15:14 | BD ---
EXAMINATION TYPE: Axial Bone Density DATE OF EXAM: 03/11/2024 CLINICAL HISTORY: 48 years old Female. ICD-10 CODE: M8580 OSTEOPENIA , Additional History: Height: 5 ft 3 in Weight: 145 FRAX RISK QUESTIONS: Alcohol (3 or more units per day): no Family History (Parent hip fracture): no Glucocorticoids (More than 3mos): no (Ex: prednisone, prednisolone, methylprednisolone, dexamethasone, and hydrocortisone). History of Fracture in Adulthood: no Secondary Osteoporosis: 1. Type 1 Diabetes: no 2. Hyperthyroidism: no 3. Menopause before 45: yes 4. Malnutrition: no 5. Chronic liver disease: no Rheumatoid Arthritis: no Current Tobacco Use: no RISK FACTORS HISTORY OF: Surgery to Spine/Hip(right/left)/Wrist (right/left): no MEDICATIONS: Thyroid Medications: none now Osteoporosis Medications: none EXAM MEASUREMENTS: Bone mineral densitometry was performed using the [employer]. Bone mineral density as measured about the Lumbar spine is: ----- L1-L4(G/cm2): 1.062 T Score Values are as follows: ----- L1: -1.1 ----- L2: -1.6 ----- L3: -0.8 ----- L4: -0.7 ----- L1-L4: -1.0 Z Score Values are as follows: ----- L1: -0.8 ----- L2: -1.4 ----- L3: -0.5 ----- L4: -0.5 ----- L1-L4: -0.7 Bone mineral density has: increased 0.9 % since study of: 2019 Bone mineral density about the R hip (g/cm2): 0.845 Bone mineral density about the L hip (g/cm2): 0.958 T Score values are as follows: -----R Neck: -1.4 -----L Neck: -0.6 -----R Total: -0.8 -----L Total: -0.8 Z Score values are as follows: -----R Neck: -0.7 -----L Neck: 0.1 -----R Total: -0.4 -----L Total: -0.4 Bone mineral density has: increased 7.1 % since study of: 2019 FRAX%s: The graph provided illustrates a 4.1 % chance for a major osteoporotic fx and a 0.3 % chance for the hips probability for fx in 10 years time. IMPRESSION: Osteopenia (T Score between -2.5 and -1). There is slightly increased risk of fracture and the patient may be considered for treatment. Re-Screen 2-5 years. NOTE: T-SCORE=SD OF THE YOUNG ADULT MEAN. [facility], , 03/11/2024 3:12 PM
--- NOTE | 2024-03-14 08:22 | MM ---
Reason for Exam: Screening (asymptomatic). Last mammogram was performed 1 year(s) and 1 month(s) ago. Patient History: Menarche at age 11. Patient has no children. Left ovary removed at age 36. Right ovary removed at age 36. Hysterectomy at age 36. Currently using Estrogen, starting at age 36. Risk Values: Isidra 5 year model risk: 1.1%. NCI Lifetime model risk: 11.1%. Prior Study Comparison: 11/28/2020 Bilateral MG screening mammo w CAD - 2, [facility]. 01/06/2022 Bilateral MG 3D screening mammo w/cad, [facility]. 01/23/2023 Bilateral MG 3D screening mammo w/cad, [facility]. Tissue Density: The breasts are heterogeneously dense, which may obscure small masses. Findings: Analyzed By CAD. The pattern is symmetrical. No significant interval change. No suspicious groups of microcalcifications, spiculated or lobular masses, architectural distortion or other secondary signs of malignancy are mammographically apparent. Patient reports palpable region left axilla. This is out of the [id number] on mammograms. Consider ultrasound. Overall Assessment: Benign, BI-RAD 2 Management: Screening Mammogram of both breasts in 1 year. A negative mammogram report should not preclude additional follow up of suspicious palpable abnormalities. Patient should continue monthly self breast exam. A clinical breast exam by your physician is recommended on an annual basis and results should be correlated with mammographic findings. Note on Isidra scores and lifetime risk: 1. A Isidra score greater than 3% is considered moderate risk. If this is the case, consider specialist referral to assess eligibility for a risk reducing agent. 2. If overall lifetime risk for the development of breast cancer is 20% or higher, the patient may qualify for future screening with alternating mammogram and breast MRI. [facility], , 03/14/2024 8:20 AM. Electronically signed and approved by: Kelby Parry D.O. Radiologis
== END | disposition home or self-care (01) ==
LOC: RADMAMWWP 13:19
PROVIDERS: ATTEND Obstetrics & Gynecology
DX: Z12.31 Encounter for screening mammogram for malignant neoplasm of breast (principal); R92.333 Mammographic heterogeneous density, bilateral breasts; N95.8 Other specified menopausal and perimenopausal disorders; M85.89 Other specified disorders of bone density and structure, multiple sites; Z90.722 Acquired absence of ovaries, bilateral
CPT/HCPCS: 77063; 77067; 77080

== ENCOUNTER → 2024-05-12 | Outpatient (CLI) | payer MEDICARE ==
--- NOTE | 2024-05-14 15:43 | MR ---
EXAMINATION TYPE: MR cervical spine wo con DATE OF EXAM: 05/12/2024 4:46 PM COMPARISON: None. CLINICAL INDICATION: Female, 48 years old with history of M54.2,M54.12,M47.812, Neck pain, weakness a nd numbness in arms and hands, lack of rotation with head TECHNIQUE: Multiplanar multiecho imaging on a 3.0 Rosalia magnet is performed through the cervical spin e. IV Contrast: mL (None, if empty) FINDINGS: The craniovertebral junction is normal. Vertebral body alignment is normal. C7-T1: No focal disc herniation or significant disc bulge is evident. No spinal canal stenosis or n eural foraminal stenosis is present. C6-7: Minimal disc bulge may be present. No cord contact or spinal canal stenosis is present. Minimal right foraminal narrowing is present.. C5-6: Mild disc bulge is mild anterior thecal sac flattening. Cord contact may be present. No AP spin al canal stenosis is present. Neural foramen are patent cord deformity is present. C4-5: No focal disc herniation or significant disc bulge is evident. No spinal canal stenosis. Mild left foraminal narrowing may be present. C3-4: No focal disc herniation or significant disc bulge is evident. No spinal canal stenosis or tiago ral foraminal stenosis is present. C2-3: No focal disc herniation or significant disc bulge is evident. No spinal canal stenosis or tiago ral foraminal stenosis is present. IMPRESSION: 1. Mild disc bulge C5-6 with anterior thecal sac flattening. Some cord contact without cord deformity may be present. No spinal canal stenosis. 2. Minimal disc bulging C6-7 without cord contact or spinal canal stenosis. 3. Minimal foraminal narrowing on the left at C4-5 and on the right at C6-7 [facility], , 05/14/2024 3:41 PM
== END | disposition home or self-care (01) ==
LOC: RADMRIMAIN 15:34
PROVIDERS: ATTEND Orthopaedic Surgery
DX: M47.22 Other spondylosis with radiculopathy, cervical region (principal); M50.122 Cervical disc disorder at C5-C6 level with radiculopathy; M99.71 Connective tissue and disc stenosis of intervertebral foramina of cervical region
CPT/HCPCS: 72141

== ENCOUNTER → 2024-08-01 | Outpatient (CLI) | payer MEDICARE ==
[2024-08-01 13:45] VITALS: BP 123/89; PULSE 109; RESP 16; TEMP 97.5
--- NOTE | 2024-08-03 11:01 | P.PAINPG ---
Objective - Vital Signs Vital signs: Vital Signs Temp 97.5 F L 08/01/24 13:38 Pulse 109 H 08/01/24 13:38 Resp 16 08/01/24 13:38 BP 123/89 08/01/24 13:38 Pulse Ox 98 08/01/24 13:38 FiO2 Intake & Output 07/31/24 08/01/24 08/01/24 18:59 06:59 18:59 Weight 67.585 kg PQRS Measure Charge Sheet Mode of Arrival: Ambulatory Comment: HISTORY OF PRESENT ILLNESS: A 49 yr old female as a referral from Dr Vick presents today w severe and chronic lumbosacral pain secondary to radiculopathy, spondylosis and facet arthropathy without myelopathy, BL Sacroiliitis for evaluation. Pt states pain level is provoked at 7 /10 in intensity, constant, localized in the lumbosacral spine, predominantly axial, throbbing in character w occasional shooting pain towards the buttocks and hips. Pain is provoked by sitting for periods > 30 min. Pain is alleviated by PT x 6 wks which ended in Fall 2023, physician guided home exercises every other day since Fall 2023, heat, ice, medications, topical, use of a TENS unit, repositioning and rest . She has already had 1 SI injection which lasted [address] Vick's office and will receive another SI injection at this facility. Oswestry axial pain score at 27. PMH: OA, MDD/ Anxiety PSH: Fistula (after surgery), Hernia Repair, Hysterectomy, Tonsillectomy SH: Negative x3 FH: Mo- No Reported History All: See list Medications include Aleve, CBD Oil REVIEW OF ORGAN SYSTEMS: CONSTITUTIONAL: No fevers or chills. No recent weight loss. NEUROLOGICAL: + numbness and tingling along the distal extremities. No seizure disorders or headaches. MUSCULOSKELETAL: + pain PSYCHIATRIC: Denies current depression or suicidal thoughts. Physical Examinations : Constitutional : Cooperative , not in acute distress . Neurologic : Cranial nerve II to XII intact. No focal neurological deficits. Psychiatric : alert & oriented x 3. Matching mood & appropriate affect. Judgment & insight intact. Musculoskeletal : Cervical Spine Motor strength in the deltoid and biceps: Normal right side. Normal Left side Motor strength biceps and the wrist extensors: Normal right side . Normal left side Motor strength in the triceps muscle: Normal right side. Normal left side Deep tendon reflexes: Normal at the biceps. Normal at Brachioradialis. Normal at triceps Vertebral body tenderness to deep palpation over Cervical facet loading test: positive bilaterally Spurling test: positive bilaterally Neck distraction test: positive bilaterally Tonio sign: positive bilaterally Lumbar spine Motor strength lower extremities ,thigh and legs 5/5 Right side , 5/5 Left side Deep tendon reflexes : Normal Knee Jerk. Normal Ankle Jerk Vertebral body tenderness over Escalante Test positive Lumbar facet Loading Test: positive Right / positive Left Range of motion of the lumbar spine Flexion 30 degrees, extension 10 degrees Straight Leg Raise test: Left/ Right positive at degrees Lux test: positive right / positive left. Severe tenderness over the Sacroiliac joint on the Right / Left sides Gaenslen test: positive bilaterally Seated flexion test: positive bilaterally. Sacral spine : Severe tenderness over the Sacroiliac joint: right side / left side Range of motion: Flexion of the lumbar spine <60 degrees Range of motion: Extension of the lumbar spine <20 degrees Gaenslen's Test positive BL Lux test: positive right side < left side Thigh Thrust Test L positive Sacral Thrust Test Imaging: MRI non contrast lumbar spine from 11/25/23 reviewed Assessment/ Plan : L4-L5 radiculopathy, BL Sacroiliitis Recommendation of L SI #1. Risks, benefits of procedure discussed and patient verbalized understanding. Admits to anti- coagulant use or medical history of diabetes. Protocol for discontinuation/ continuation of medications marion procedure discussed. All questions answered. I have spent greater than 30 minutes on patient care today. Dr Pinto was available by phone for the evaluation of this patient. The time was used to review the medical records including relevant urine studies and Prescription history (MAPs), review of the available imaging, evaluation and examination of the patient, coordination of care with the medical staff and if applicable referring physicians, as well as creation of the medical record - Pain Location Bilateral Lower Back Non-Pharmacological Interventions: Chiropractic Treatment, Heat, Ice, Inactivity, Massage, Physical Therapy, Position/Reposition, Relaxation Technique, Sitting, Standing, TENS Unit Pharmacological Interventions: Epidural, PRN Medication, Topical Medication PQRS Narrative: Smoking Status Never smoker Blood Pressure 123/89 Pain Intensity [Bilateral 7 Lower Back] Scale Used Numeric (1 - 10) Hx Alcohol Use (MH) No Home Medications: Ambulatory Orders estradioL [Estrace] 1 mg PO HS 01/10/16 Mirtazapine [Remeron] 45 mg PO HS #0 tablet 07/08/18 Atorvastatin [Lipitor] 40 mg PO DAILY 08/01/24 Methylphenidate HCl [Concerta] 54 mg PO DAILY 08/01/24 Venlafaxine HCl ER [Effexor XR] 150 PO DAILY 08/01/24 Controlled Substance Measures - Controlled Substance Measures Is patient prescribed a controlled substance at discharge?: No
== END ==
LOC: PNWHC3 13:26
PROVIDERS: ATTEND Specialist
DX: M47.26 Other spondylosis with radiculopathy, lumbar region (principal); M46.1 Sacroiliitis, not elsewhere classified; M51.16 Intervertebral disc disorders with radiculopathy, lumbar region; M99.63 Osseous and subluxation stenosis of intervertebral foramina of lumbar region; Z91.048 Other nonmedicinal substance allergy status; Z91.041 Radiographic dye allergy status; Z88.8 Allergy status to other drugs, medicaments and biological substances
CPT/HCPCS: 99211

== ENCOUNTER 2024-08-04 03:51 | Emergency (ER) | payer MEDICARE ==
[2024-08-04 03:56] VITALS: BP 143/94; PULSE 88; RESP 18; TEMP 97.3
[2024-08-04] MEDS: TOPICAL SKIN ADHESIVE 1 EACH AMP TOPICAL ONE (04:06)
--- NOTE | 2024-08-04 04:15 | ED ---
General Adult HPI - General Chief complaint: Wound/Laceration Stated complaint: face laceration Time Seen by Provider: 08/04/24 03:52 Source: patient Mode of arrival: ambulatory - History of Present Illness Initial comments: Dictation was produced using [employer] dictation software. please excuse any grammatical, word or spelling errors. Chief Complaint: 49-year-old female with superficial facial laceration History of Present Illness: Patient is a 49-year-old female presents emergency department with superficial facial laceration. Patient states she was up in the morning. She states she has a history of sleep disorder. She was trying to exfoliate some of the skin on her arm when she accidentally cut her face. She had a superficial laceration to her left chin. The ROS documented in this emergency department record has been reviewed and confirmed by me. Those systems with pertinent positive or negative responses have been documented in the HPI. All other systems are other negative and/or noncontributory. - Related Data Home Medications Medication Instructions Recorded Confirmed estradioL [Estrace] 1 mg PO HS 01/10/16 07/03/18 Atorvastatin [Lipitor] 40 mg PO DAILY 08/01/24 08/01/24 Methylphenidate HCl [Concerta] 54 mg PO DAILY 08/01/24 08/01/24 Venlafaxine HCl ER [Effexor XR] 150 PO DAILY 08/01/24 Previous Rx's Medication Instructions Recorded Mirtazapine [Remeron] 45 mg PO HS #0 tablet 07/08/18 Allergies Allergy/AdvReac Type Severity Reaction Status Date / Time adhesive Allergy Intermediate Itching Verified 08/04/24 03:56 aripiprazole [From Abilify] Allergy SWOLLEN Verified 08/04/24 03:56 LIPS Androgenic Anabolic Steroid AdvReac Severe Unknown Verified 08/04/24 03:56 IV contrast Allergy Itching Uncoded 08/04/24 03:56 Review of Systems ROS Statement: Those systems with pertinent positive or pertinent negative responses have been documented in the HPI. ROS Other: All systems not noted in ROS Statement are negative. Past Medical History Additional Past Medical History / Comment(s): cystitis, depression, anxiety. FISTULA History of Any Multi-Drug Resistant Organisms: C-DIFF Date of last positivie culture/infection: 04/29/2014 MDRO Source:: stool AFTER SURGERY Past Surgical History: Hernia Repair, Hysterectomy, Tonsillectomy Past Anesthesia/Blood Transfusion Reactions: No Reported Reaction Past Psychological History: Anxiety, Depression Smoking Status: Never smoker Past Alcohol Use History: None Reported Past Drug Use History: None Reported - Past Family History Mother Family Medical History: No Reported History General Exam - General Exam Comments Initial Comments: General: Well-appearing, nontoxic, no acute distress. Head: Normocephalic, atraumatic Eyes: PERRLA, EOMI ENT: Airway patent Chest: Nonlabored breathing Skin: No visual rash, normal skin tone, superficial laceration to the left mandibular chin approximately 4 cm Neuro: Alert and oriented 3 Musculoskeletal: No gross abnormalities Course Vital Signs 08/04/24 03:52 Temperature 97.3 F L Pulse Rate 88 Respiratory 18 Rate Blood Pressure 143/94 O2 Sat by Pulse 98 Oximetry Procedures - Laceration Laceration #1 Indication: laceration Site: face Description: linear Type of Sutures: other (dermabond) Patient Tolerated Procedure: well Medical Decision Making - Medical Decision Making Was pt. sent in by a medical professional or institution (Dr. PA, STAFF NURSE, urgent care, hospital, or long term...) When possible be specific @ -No Did you speak to anyone other than the patient for history (EMS, parent, family, police, friend...)? What history was obtained from this source @ -No Did you review nursing and triage notes (agree or disagree)? Why? @ -I reviewed and agree with nursing and triage notes Were old charts reviewed (outside hosp., previous admission, EMS record, old EKG, old radiological studies, urgent care reports/EKG's, long term records)? Report findings @ -No old charts were reviewed Differential Diagnosis (chest pain, altered mental status, abdominal pain women, abdominal pain men, vaginal bleeding, musculoskeletal, weakness, fever, dyspnea, syncope, headache, dizziness, GI bleed, back pain, seizure, CVA, palpatations, mental health)? @ -Not applicable EKG interpreted by me (3pts min.). @ -None done X-rays interpreted by me (1pt min.). @ -None done CT interpreted by me (1pt min.). @ -None done U/S interpreted by me (1pt. min.). @ -None done What testing was considered but not performed or refused? (CT, X-rays, U/S, labs)? Why? @ -None What meds were considered but not given or refused? Why? @ -None Was smoking cessation discussed for >3mins.? @ -No Were there social determinants of health that impacted care today? How? (Homelessness, low income, unemployed, alcoholism, drug addiction, transportation, low edu. Level, literacy, decrease access to med. care, fpc, rehab)? @ -No Was there de-escalation of care discussed even if they declined (Discuss DNR or withdrawal of care, Hospice)? DNR status @ -No What co-morbidities impacted this encounter? (DM, HTN, Smoking, COPD, CAD, Cancer, CVA, ARF, Chemo, Hep., AIDS, mental health diagnosis, sleep apnea, morbid obesity)? @ -None Was patient admitted / discharged? Hospital course, mention meds given and route, prescriptions, significant lab abnormalities, going to OR and other pertinent info. @ -49-year-old female with superficial laceration to the left anterior chin. Please see procedure note for repair. Wound was very superficial. Wound edges cleaned with iodine solution. Patient denies any allergy to iodine. Dermabond was placed to repair laceration. Patient reports allergy to adhesives. Prior to applying Steri-Strip she was agreeable for trying Steri-Strip placement knowing that Steri-Strips do involve some adhesives. Did you discuss the management of the patient with other professionals (professionals i.e. , PA, STAFF NURSE, lab, RT, psych nurse, social insurance administrator, electro plater, teacher, deportation officer, bilingual patient support caseworker)? Give summary @ -No Was critical care preformed (if so, how long)? @ -No Undiagnosed new problem with uncertain prognosis? @ -No Drug Therapy requiring intensive monitoring for toxicity (Heparin, Nitro, Insulin, Cardizem)? @ -No Were any procedures done? @ -No Diagnosis/symptom? Acute, or Chronic, or Acute on Chronic? Uncomplicated (without systemic symptoms) or Complicated (systemic symptoms)? @ -Chin laceration Side effects of treatment? @ -No Exacerbation, Progression, or Severe Exacerbation? @ -No Poses a threat to life or bodily function? How? (Chest pain, [place], NH, pneumonia, PE, COPD, DKA, ARF, appy, cholecystitis, CVA, Diverticulitis, Homicidal, Suicidal, threat to staff... and all critical care pts) @ -No Disposition Clinical Impression: Laceration Disposition: HOME SELF-CARE Instructions (If sedation given, give patient instructions): Laceration (ED) Is patient prescribed a controlled substance at d/c from ED?: No Referrals: Moni You DO [Primary Care Provider] - 1-2 days Time of Disposition: 04:15
== END 2024-08-04 04:15 | disposition home or self-care (01) ==
LOC: EC 03:51
DX: S01.81XA Laceration without foreign body of other part of head, initial encounter (principal); Z91.048 Other nonmedicinal substance allergy status; Z88.8 Allergy status to other drugs, medicaments and biological substances; Z91.041 Radiographic dye allergy status; W26.9XXA Contact with unspecified sharp object(s), initial encounter
CPT/HCPCS: 12011; 99282

== ENCOUNTER 2024-09-08 13:08 | Day surgery (SDC) | payer MEDICARE ==
[2024-09-06 15:55] VITALS: BMI 26.0
[2024-09-08 13:55] VITALS: RESP 16; TEMP 97.1
[2024-09-08] MEDS ORDERED: LACTATED RINGERS 1,000 ML IV SCH (13:56)
[2024-09-08] MEDS ORDERED: ROPIVACAINE 5 MG/ML 30 ML VIAL ONE (14:59)
--- NOTE | 2024-09-08 15:10 | P.PCN ---
Date of Procedure: 09/08/24 Procedure(s) Performed: Procedure=Left sacroiliac joints local anesthetic injection under fluoroscopy guidance (fluoroscopy image stored on file in the radiology Department ) Preoperative diagnosis= 1-sacroiliitis 2-lumbar degenerative disc disease 3- lumbar radiculopathy Postoperative diagnosis=Same as preop Diagnosis . Complication = none Condition= stable Anesthesia= local anesthesia with ropivacaine 0.5% 2 ml only Indication for the procedure= patient complaining of low back pain , examination was positive for severe tenderness over the sacroiliac joints bilaterally and patient diagnosed with sacroiliitis, for this reason she was good candidate for sacroiliac joint steroid injection. Description of the procedure= procedure risk and benefits discussed with the patient, including but not limited, risk of infection and bleeding, and ALLERGIC reaction to the medication and not complete pain relief and patient agreed with the preceding patient taken to the operating room, placed in prone position or standard monitors applied to the patient then after induction of anesthesia back prepped with chlorhexidine 3 times , Then under strict sterile technique, Then the left sacroiliac joint steroid injection done under strict sterile technique local infiltration of the skin and subcu interstitial at the location of the left sacroiliac joint then a 23-gauge Quincke Needle advanced slowly under fluoroscopy time placed in the left sacroiliac joint, needle placement confirmed with AP and oblique and lateral view then after appropriate needle placement confirmed, with the AP and oblique and lateral view, and after negative aspiration 0.5% Ropivacaine 3 mL injected in the left sacroiliac joint after negative aspiration patient tolerated the procedure well that any complications and she will follow up with Dr. Powers for evaluation, today this injection was diagnostic block to evaluate if the patient will be good candidate to have surgical intervention in the future. No steroid was injected in the procedure. And Isovue was not injected because patient had allergy to IV contrast
[2024-09-08 15:27] VITALS: BP 123/92; PULSE 91
--- NOTE | 2024-09-08 15:27 | FL ---
EXAMINATION TYPE: FL guided pain mgmt statistic DATE OF EXAM: 09/08/2024 FLUOROSCOPY FLUORO TIME: 7 SEC DAP: [id number] 1 image is provided during one sided SI joint injection. [facility], , 09/08/2024 3:25 PM
== END 2024-09-08 15:40 | disposition home or self-care (01) ==
LOC: ORPAIN 13:08
PROVIDERS: ATTEND Specialist
DX: M46.1 Sacroiliitis, not elsewhere classified (principal); M51.16 Intervertebral disc disorders with radiculopathy, lumbar region
CPT/HCPCS: J2795; G0260; 27096